=== PATIENT | female | born 1950 | race Caucasian/White ===

== ENCOUNTER 2021-07-09 09:17 | Inpatient (IN) | payer OTHER, MEDICAID ==
[~2021-07-09] VITALS: Ht 175.3 cm; Wt 105.4 kg
[2021-07-09 10:29] LABS: Basophils # (auto) 0.1 10 ^3/uL (0-0.2); Basophils % (auto) 1.1 % (0.0-2.0); Eosinophils # (auto) 0.1 10 ^3/uL (0-0.8); Eosinophils % (auto) 1.4 % (0.0-7.0); Hematocrit 48.9 % (36.0-46.0); Hemoglobin 16.9 g/dL (12.2-16.2); Lymphocytes # (auto) 2.1 10 ^3/uL (0.4-5.4); Lymphocytes % (auto) 42.6 % (10.0-50.0); Mean Corpuscular Hgb Conc. 34.7 g/dL (32.0-36.0); Mean Corpuscular Volume 86.5 fL (80.0-100.0); Monocytes # (auto) 0.5 10 ^3/uL (0-1.3); Monocytes % (auto) 10.4 % (0.0-12.0); Neutrophils # (auto) 2.2 10 ^3/uL (1.6-8.6); Neutrophils % (auto) 44.5 % (37.0-80.0); Nucleated Red Blood Cells % 0.2 %; Red Blood Cells 5.66 10^6/uL (4.0-5.20); Red Cell Distribution Width 13.3 % (11.8-14.3)
[2021-07-09 10:43] LABS: Albumin 3.8 g/dL (3.4-5.0); Calcium 9.5 mg/dL (8.5-10.1); Potassium 3.3 mmol/L (3.5-5.1)
[2021-07-09 10:47] LABS: BUN/Creatinine Ratio 20.9
[2021-07-09 10:48] LABS: Bilirubin, Total 0.9 mg/dL (0.2-1.0); Total Protein 7.5 g/dL (6.4-8.2)
[2021-07-09] MEDS ORDERED: ONDANSETRON HCL 4 MG/2 ML VIAL IV ONE (11:15)
[2021-07-09] MEDS ORDERED: PANTOPRAZOLE 40 MG/10 ML VIAL INJ IV ONE (11:15)
[2021-07-09] MEDS ORDERED: SODIUM CHLORIDE 0.9% 500 ML IVB ONE (11:15)
[2021-07-09 11:38] LABS: Urine Blood Negative /uL (Negative)
[2021-07-09] MEDS ORDERED: POTASSIUM CHL 20MEQ/100ML 100 ML IV ONE (11:45)
[2021-07-09 13:40] LABS: Urine WBC 25 /hpf (0 - 5)
[2021-07-09 13:41] LABS: Urine Bacteria FEW /hpf (None Seen)
[2021-07-09] MEDS ORDERED: SODIUM CHLORIDE 0.9% 3,000 ML IV SCH (17:15)
[2021-07-09] MEDS ORDERED: MORPHINE SULFATE INJECTION 2 MG/ML SYRG IV PRN (17:15)
[2021-07-09] MEDS ORDERED: cefTRIAXone 1GM/50ML D5W 50 ML IV ONE (17:30)
[2021-07-09] MEDS: SODIUM CHLORIDE 0.9% 1,000 ML IV SCH (17:45)
[2021-07-09] MEDS ORDERED: hydrALAZINE HCL 20 MG/ML VL IV PRN (17:45)
[2021-07-09 18:48] LABS: Magnesium 2.3 mg/dL (1.6-2.6)
[2021-07-09 20:15] VITALS: BP 147/80
[2021-07-09 20:39] VITALS: BP 147/80
[2021-07-09] MEDS ORDERED: HEPARIN SODIUM (PORCINE) 5000 UNITS/ML 1ML VIAL ONE (20:39)
[2021-07-09] MEDS ORDERED: MET50T PO (20:46)
[2021-07-09] MEDS ORDERED: PAR20T PO (20:46)
[2021-07-09] MEDS ORDERED: BENA10TA15 PO (20:46)
[2021-07-09] MEDS: HEPARIN SODIUM (PORCINE) 5000 UNITS/ML 1ML VIAL SC SCH (21:01)
[2021-07-09] MEDS: metroNIDAZOLE 500MG/100ML 100 ML IV SCH (21:02)
[2021-07-09 21:55] VITALS: BP 121/65
[2021-07-10] MEDS: SODIUM CHLORIDE 0.9% 1,000 ML IV SCH ×2 (02:05→09:01)
[2021-07-10 05:00] VITALS: BP 111/49
[2021-07-10] MEDS: metroNIDAZOLE 500MG/100ML 100 ML IV SCH (05:19)
[2021-07-10 06:30] LABS: Basophils # (auto) 0 10 ^3/uL (0-0.2); Basophils % (auto) 0.7 % (0.0-2.0); Eosinophils # (auto) 0.2 10 ^3/uL (0-0.8); Hematocrit 42.9 % (36.0-46.0); Mean Corpuscular Hemoglobin 30.1 pg (28.0-32.0); Mean Corpuscular Hgb Conc. 34.9 g/dL (32.0-36.0); Mean Corpuscular Volume 86.3 fL (80.0-100.0); Neutrophils # (auto) 1.6 10 ^3/uL (1.6-8.6); Nucleated Red Blood Cells % 0.2 %; Red Blood Cells 4.97 10^6/uL (4.0-5.20); Red Cell Distribution Width 13.5 % (11.8-14.3); White Blood Cell 5.3 10^3/uL (4.4-10.8)
[2021-07-10 06:32] LABS: Potassium 3.1 mmol/L (3.5-5.1)
[2021-07-10 06:45] LABS: Lymphocytes % (auto) 53.7 % (10.0-50.0); Monocytes % (auto) 12.6 % (0.0-12.0)
[2021-07-10 06:46] LABS: Lymphocytes # (auto) 2.7 10 ^3/uL (0.4-5.4); Monocytes # (auto) 0.8 10 ^3/uL (0-1.3)
[2021-07-10 06:58] LABS: Albumin 3.1 g/dL (3.4-5.0); BUN/Creatinine Ratio 24.7; Bilirubin, Total 0.6 mg/dL (0.2-1.0); Calcium 8.6 mg/dL (8.5-10.1); Total Protein 6.6 g/dL (6.4-8.2)
[2021-07-10] MEDS: cefTRIAXone 1GM/50ML D5W 50 ML IV SCH (09:00)
[2021-07-10] MEDS: HEPARIN SODIUM (PORCINE) 5000 UNITS/ML 1ML VIAL SC SCH (09:01)
[2021-07-10 09:08] VITALS: BP 113/60
[2021-07-10] MEDS ORDERED: ACETAMINOPHEN 325 MG TAB PO PRN (10:30)
[2021-07-10] MEDS ORDERED: POTASSIUM CHL 20 Meq TABLET PO ONE (11:45)
[2021-07-10] MEDS ORDERED: guaiFENesin-DM 100/10mg/5ml SYR PO PRN (11:45)
[2021-07-10] MEDS: BENAZEPRIL HCL 10 MG TAB PO SCH (12:45)
[2021-07-10] MEDS: PARoxetine 20 MG TAB PO SCH (12:45)
[2021-07-10] MEDS: METOPROLOL SUCCINATE XL 50 MG TAB PO SCH (12:45)
[2021-07-10 13:00] VITALS: BP 123/70
[2021-07-10 16:29] VITALS: BP 99/72
[2021-07-10 22:00] VITALS: BP 111/64
[2021-07-10] MEDS ORDERED: METOPROLOL TARTRATE 50 MG TAB PO SCH (22:00)
[2021-07-11] MEDS: HEPARIN SODIUM (PORCINE) 5000 UNITS/ML 1ML VIAL SC SCH ×2 (00:16→09:52)
[2021-07-11 05:00] VITALS: BP 106/41
[2021-07-11 06:15] LABS: Hematocrit 39.1 % (36.0-46.0); Hemoglobin 13.6 g/dL (12.2-16.2); Mean Corpuscular Hgb Conc. 34.9 g/dL (32.0-36.0); Red Blood Cells 4.55 10^6/uL (4.0-5.20); Red Cell Distribution Width 13.5 % (11.8-14.3)
[2021-07-11 06:27] LABS: BUN/Creatinine Ratio 20.8; Calcium 8.5 mg/dL (8.5-10.1); Potassium 3.4 mmol/L (3.5-5.1)
[2021-07-11 06:32] LABS: Basophils % (manual) 0 (0.0-2.0); Blast Cells 0; Metamyelocytes % 0; Myelocytes % 0; Promyelocytes % 0; Reactive Lymphocytes 0
[2021-07-11 07:42] LABS: Band Neutrophils % (manual) 3; Eosinophils % (manual) 2 (0-7); Lymphocytes % (manual) 54 (10.0-50.0); Monocytes % (manual) 8 (0-12)
[2021-07-11 08:42] VITALS: BP 129/72
[2021-07-11] MEDS: cefTRIAXone 1GM/50ML D5W 50 ML IV SCH (09:44)
[2021-07-11] MEDS: PARoxetine 20 MG TAB PO SCH (09:45)
[2021-07-11] MEDS: METOPROLOL SUCCINATE XL 50 MG TAB PO SCH (09:49)
[2021-07-11] MEDS: BENAZEPRIL HCL 10 MG TAB PO SCH (09:50)
[2021-07-11] MEDS ORDERED: BENAZEPRIL HCL 10 MG TAB PO SCH (10:00)
[2021-07-11] MEDS ORDERED: PARoxetine 20 MG TAB PO SCH (10:00)
[2021-07-11] MEDS ORDERED: LEVO750T8 PO (10:35)
[2021-07-11] MEDS ORDERED: POTASSIUM EFFERVESENT TAB 25 MEQ GT ONE (10:45)
[2021-07-11 12:45] VITALS: BP 132/78
[2021-07-11 15:49] VITALS: BP 132/78
[2021-07-11 16:47] VITALS: BP 136/67
== END 2021-07-11 16:48 | disposition home or self-care (01) | DRG 682 ==
LOC: ER 09:17 → OVERFLOW 17:14 → WEST WING 19:38
PROVIDERS: ADMIT Registered Nurse; ATTEND Internal Medicine Pulmonary Disease
DX: N17.9 Acute kidney failure, unspecified (principal); J18.9 Pneumonia, unspecified organism; N39.0 Urinary tract infection, site not specified; E86.0 Dehydration; E66.01 Morbid (severe) obesity due to excess calories; E87.6 Hypokalemia; F41.9 Anxiety disorder, unspecified; I10 Essential (primary) hypertension; Z20.822 Contact with and (suspected) exposure to COVID-19; R79.89 Other specified abnormal findings of blood chemistry; K57.30 Diverticulosis of large intestine without perforation or abscess without bleeding; Z90.49 Acquired absence of other specified parts of digestive tract; Z68.34 Body mass index [BMI] 34.0-34.9, adult
CPT/HCPCS: 36415; 71046; 74176; 80048; 80053; 80061; 81001; 83036; 83735; 83880; 84443; 84484; 85007; 85025; 85027; 87086; 93005; 96361; 96374; 96375; C9113; G0378; J0696; J2405; J3480; J3490

== ENCOUNTER 2022-07-01 08:24 | Emergency (ER) | payer OTHER ==
[~2022-07-01] VITALS: Ht 177.8 cm; Wt 111.5 kg
[~2022-07-01 08:24] MED LIST: ASPI1TAB19 PO; BENA10TA15 PO; LEVO750T8 PO; MET50T PO; METR500T PO; PAR20T PO
[2022-07-01] MEDS ORDERED: SODIUM CHLORIDE 0.9% 1,000 ML IV ONE (09:00)
[2022-07-01] MEDS ORDERED: MORPHINE SULFATE 10 MG/ML INJ 1ML SDV IV ONE (09:00)
[2022-07-01] MEDS ORDERED: ONDANSETRON HCL 4 MG/2 ML VIAL IV ONE (09:00)
[2022-07-01 09:16] LABS: Urine Bacteria NONE SEEN /hpf (None Seen); Urine Blood TRACE /uL (Negative); Urine Mucus FEW (None Seen); Urine Specific Gravity 1.026 (1.001-1.035); Urine WBC 20 /hpf (0 - 5)
[2022-07-01 09:22] LABS: Basophils # (auto) 0.2 10 ^3/uL (0-0.2); Basophils % (auto) 1.2 % (0.0-2.0); Eosinophils # (auto) 0.2 10 ^3/uL (0-0.8); Eosinophils % (auto) 1.2 % (0.0-7.0); Hematocrit 45.5 % (36.0-46.0); Hemoglobin 15.8 g/dL (12.2-16.2); Lymphocytes # (auto) 3.1 10 ^3/uL (0.4-5.4); Mean Corpuscular Hemoglobin 30.3 pg (28.0-32.0); Mean Corpuscular Hgb Conc. 34.7 g/dL (32.0-36.0); Mean Corpuscular Volume 87.4 fL (80.0-100.0); Monocytes # (auto) 0.9 10 ^3/uL (0-1.3); Monocytes % (auto) 6.9 % (0.0-12.0); Neutrophils % (auto) 67.7 % (37.0-80.0); Nucleated Red Blood Cells % 0.1 %; Red Cell Distribution Width 14.1 % (11.8-14.3); White Blood Cell 13.3 10^3/uL (4.4-10.8)
[2022-07-01 11:18] LABS: Alanine Aminotransferase 21 U/L (13-56); Alkaline Phosphatase 40 U/L (45-117); Anion Gap 5 (5-15); Aspartate Aminotransferase 12 U/L (15-37); BUN/Creatinine Ratio 18.3 (10.0-20.0); Blood Urea Nitrogen 15 mg/dL (7-18); Calcium 8.5 mg/dL (8.5-10.1); Carbon Dioxide 27 mmol/L (21-32); Chloride 107 mmol/L (98-107); GFR African American 89 mL/min; GFR Non-African American 73 mL/min; Glucose 118 mg/dL (74-106); Potassium 3.5 mmol/L (3.5-5.1); Sodium 139 mmol/L (136-145)
[2022-07-01 11:19] LABS: Albumin 3.3 g/dL (3.4-5.0); Bilirubin, Total 1.4 mg/dL (0.2-1.0); Lipase 85 U/L (73-393); Total Protein 6.4 g/dL (6.4-8.2)
[2022-07-01] MEDS ORDERED: IOHEXOL 300 MG/ML 100ML BOTTLE IJ ONE (12:05)
[2022-07-01] MEDS ORDERED: metroNIDAZOLE 500MG/100ML 100 ML IV ONE (13:45)
[2022-07-01] MEDS ORDERED: CIPROFLOXACIN 400MG/200ML 200 ML IV ONE (13:45)
[2022-07-01] MEDS ORDERED: CIPR-173 PO (13:47)
[2022-07-01] MEDS ORDERED: METR500T PO (13:47)
[2022-07-01] MEDS ORDERED: DICY10CA PO ×2 (13:47)
[2022-07-01] MEDS ORDERED: ONDA-144 PO ×2 (13:47)
[2022-07-01 16:06] VITALS: BP 120/66
== END 2022-07-01 16:14 | disposition home or self-care (01) ==
LOC: ER 08:24
DX: K57.32 Diverticulitis of large intestine without perforation or abscess without bleeding (principal); N39.0 Urinary tract infection, site not specified; I10 Essential (primary) hypertension; Z87.891 Personal history of nicotine dependence; Z90.49 Acquired absence of other specified parts of digestive tract; Z98.890 Other specified postprocedural states
CPT/HCPCS: 36415; 74177; 80053; 81001; 83690; 85025; 96365; 96368; 96375; 99285; J0744; J2270; J2405; J3490; Q9967

== ENCOUNTER 2022-07-04 08:20 | Inpatient (IN) | payer OTHER ==
[~2022-07-04] VITALS: Ht 175.3 cm; Wt 113.5 kg
[~2022-07-04 08:20] MED LIST changes: +CIPR-173 PO; +DICY10CA PO; +ONDA-144 PO
[2022-07-04 09:06] LABS: Urine Bacteria FEW /hpf (None Seen); Urine Blood Negative /uL (Negative); Urine Mucus FEW (None Seen); Urine Specific Gravity 1.024 (1.001-1.035); Urine WBC 22 /hpf (0 - 5)
[2022-07-04 09:17] LABS: Basophils # (auto) 0 10 ^3/uL (0-0.2); Basophils % (auto) 0.5 % (0.0-2.0); Eosinophils # (auto) 0.3 10 ^3/uL (0-0.8); Eosinophils % (auto) 4.7 % (0.0-7.0); Hematocrit 43.5 % (36.0-46.0); Hemoglobin 14.9 g/dL (12.2-16.2); Lymphocytes # (auto) 2.4 10 ^3/uL (0.4-5.4); Lymphocytes % (auto) 32.6 % (10.0-50.0); Mean Corpuscular Hemoglobin 30.1 pg (28.0-32.0); Mean Corpuscular Hgb Conc. 34.4 g/dL (32.0-36.0); Mean Corpuscular Volume 87.6 fL (80.0-100.0); Monocytes # (auto) 0.5 10 ^3/uL (0-1.3); Monocytes % (auto) 6.1 % (0.0-12.0); Neutrophils # (auto) 4.2 10 ^3/uL (1.6-8.6); Neutrophils % (auto) 56.1 % (37.0-80.0); Nucleated Red Blood Cells % 0.1 %; Red Blood Cells 4.97 10^6/uL (4.0-5.20); Red Cell Distribution Width 13.4 % (11.8-14.3); White Blood Cell 7.4 10^3/uL (4.4-10.8)
[2022-07-04] MEDS ORDERED: cefTRIAXone 1GM/50ML D5W 50 ML IV ONE (09:30)
[2022-07-04] MEDS ORDERED: metroNIDAZOLE 500MG/100ML 100 ML IV ONE (09:30)
[2022-07-04] MEDS ORDERED: SODIUM CHLORIDE 0.9% 1,000 ML IV ONE ×2 (09:30)
[2022-07-04 09:35] LABS: Potassium 3.4 mmol/L (3.5-5.1)
[2022-07-04 09:42] LABS: Albumin 3.4 g/dL (3.4-5.0); BUN/Creatinine Ratio 21.8 (10.0-20.0); Bilirubin, Total 0.9 mg/dL (0.2-1.0); Calcium 8.8 mg/dL (8.5-10.1); Total Protein 6.6 g/dL (6.4-8.2)
[2022-07-04] MEDS ORDERED: ACETAMINOPHEN 500 MG TAB PO ONE (11:00)
[2022-07-04] MEDS ORDERED: ONDANSETRON HCL 4 MG/2 ML VIAL IV ONE (11:00)
[2022-07-04] MEDS ORDERED: NITROGLYCERIN 0.4 MG SL TAB SL PRN (12:45)
[2022-07-04] MEDS ORDERED: ONDANSETRON HCL 4 MG/2 ML VIAL IV PRN (12:45)
[2022-07-04] MEDS ORDERED: DOCUSATE SOD 100 MG CAP PO PRN (12:45)
[2022-07-04] MEDS ORDERED: HYDROcodone-ACET 5/325MG TAB PO PRN (12:45)
[2022-07-04] MEDS ORDERED: MORPHINE SULFATE INJ 2 MG/ml SYRG IV PRN (12:45)
[2022-07-04] MEDS: SODIUM CHLORIDE 0.9% 1,000 ML IV SCH ×2 (13:12→22:58)
[2022-07-04] MEDS: metroNIDAZOLE 500MG/100ML 100 ML IV SCH ×2 (14:04→22:57)
[2022-07-04] MEDS ORDERED: POTASSIUM CHL 20 Meq TABLET PO ONE (17:00)
[2022-07-04] MEDS ORDERED: METOPROLOL TARTRATE 50 MG TAB PO SCH (22:00)
[2022-07-04 22:04] VITALS: BP 116/44
[2022-07-04] MEDS: ACETAMINOPHEN 325 MG TAB PO PRN (22:43)
[2022-07-05] MEDS: metroNIDAZOLE 500MG/100ML 100 ML IV SCH ×3 (05:40→21:05)
[2022-07-05 07:32] LABS: Basophils # (auto) 0.1 10 ^3/uL (0-0.2); Basophils % (auto) 1.3 % (0.0-2.0); Eosinophils # (auto) 0.4 10 ^3/uL (0-0.8); Eosinophils % (auto) 6.8 % (0.0-7.0); Hematocrit 40.5 % (36.0-46.0); Hemoglobin 14.2 g/dL (12.2-16.2); Mean Corpuscular Hemoglobin 30.6 pg (28.0-32.0); Mean Corpuscular Hgb Conc. 34.9 g/dL (32.0-36.0); Mean Corpuscular Volume 87.5 fL (80.0-100.0); Monocytes # (auto) 0.4 10 ^3/uL (0-1.3); Monocytes % (auto) 7.8 % (0.0-12.0); Neutrophils # (auto) 2.8 10 ^3/uL (1.6-8.6); Neutrophils % (auto) 49.1 % (37.0-80.0); Nucleated Red Blood Cells % 0.1 %; Red Blood Cells 4.63 10^6/uL (4.0-5.20); Red Cell Distribution Width 13.6 % (11.8-14.3); White Blood Cell 5.7 10^3/uL (4.4-10.8)
[2022-07-05 07:55] LABS: Albumin 2.8 g/dL (3.4-5.0); Calcium 8.8 mg/dL (8.5-10.1); Potassium 3.5 mmol/L (3.5-5.1)
[2022-07-05 07:57] LABS: BUN/Creatinine Ratio 15.8 (10.0-20.0)
[2022-07-05 08:00] LABS: Bilirubin, Total 0.6 mg/dL (0.2-1.0); Total Protein 6.5 g/dL (6.4-8.2)
[2022-07-05] MEDS: SODIUM CHLORIDE 0.9% 1,000 ML IV SCH ×2 (08:45→18:45)
[2022-07-05 09:37] VITALS: BP 130/59
[2022-07-05] MEDS ORDERED: BENAZEPRIL HCL 10 MG TAB PO SCH (10:00)
[2022-07-05] MEDS ORDERED: PANTOPRAZOLE 40 MG/10 ML VIAL INJ IV SCH (10:00)
[2022-07-05] MEDS: ASPirin-EC 81 mg tab PO SCH (10:38)
[2022-07-05] MEDS: PARoxetine 20 MG TAB PO SCH (10:39)
[2022-07-05] MEDS: cefTRIAXone 1GM/50ML D5W 50 ML IV SCH (10:39)
[2022-07-05] MEDS: BENAZEPRIL HCL 10 MG TAB PO SCH (11:05)
[2022-07-05] MEDS: METOPROLOL TARTRATE 25 MG TAB PO SCH ×2 (11:05→21:45)
[2022-07-05] MEDS: ACETAMINOPHEN 325 MG TAB PO PRN ×2 (11:06→20:19)
[2022-07-05 12:53] VITALS: BP 140/69
[2022-07-05 16:37] VITALS: BP 131/61
[2022-07-05 22:00] VITALS: BP 134/68
[2022-07-06] MEDS: SODIUM CHLORIDE 0.9% 1,000 ML IV SCH ×2 (04:45→14:45)
[2022-07-06 05:00] VITALS: BP 111/51
[2022-07-06 05:35] LABS: BUN/Creatinine Ratio 15.4 (10.0-20.0); Calcium 8.8 mg/dL (8.5-10.1); Magnesium 2.3 mg/dL (1.6-2.6); Potassium 3.4 mmol/L (3.5-5.1)
[2022-07-06] MEDS: metroNIDAZOLE 500MG/100ML 100 ML IV SCH ×3 (06:21→21:04)
[2022-07-06 09:00] VITALS: BP 138/66
[2022-07-06] MEDS: ASPirin-EC 81 mg tab PO SCH (09:30)
[2022-07-06] MEDS: cefTRIAXone 1GM/50ML D5W 50 ML IV SCH (09:30)
[2022-07-06] MEDS: PARoxetine 20 MG TAB PO SCH (09:31)
[2022-07-06] MEDS: BENAZEPRIL HCL 10 MG TAB PO SCH (09:33)
[2022-07-06] MEDS: METOPROLOL TARTRATE 25 MG TAB PO SCH ×2 (09:33→21:47)
[2022-07-06] MEDS: ACETAMINOPHEN 325 MG TAB PO PRN (09:34)
[2022-07-06] MEDS ORDERED: POTASSIUM CHL 20 Meq TABLET PO ONE (10:30)
[2022-07-06 13:00] VITALS: BP 144/67
[2022-07-06 16:52] VITALS: BP 137/57
[2022-07-06 22:00] VITALS: BP 143/65
[2022-07-07] MEDS: SODIUM CHLORIDE 0.9% 1,000 ML IV SCH ×2 (00:45→07:47)
[2022-07-07 05:00] VITALS: BP 134/93
[2022-07-07] MEDS: metroNIDAZOLE 500MG/100ML 100 ML IV SCH (05:36)
[2022-07-07 06:37] LABS: Calcium 8.9 mg/dL (8.5-10.1)
[2022-07-07 09:00] VITALS: BP 155/76
[2022-07-07] MEDS: ASPirin-EC 81 mg tab PO SCH (09:24)
[2022-07-07] MEDS: cefTRIAXone 1GM/50ML D5W 50 ML IV SCH (09:24)
[2022-07-07] MEDS: PARoxetine 20 MG TAB PO SCH (09:24)
[2022-07-07] MEDS ORDERED: CIPR-173 PO (09:29)
[2022-07-07] MEDS ORDERED: METR500T PO (09:29)
[2022-07-07] MEDS ORDERED: METO25TA93 PO (10:57)
[2022-07-07] MEDS ORDERED: BENA20TA14 PO (10:58)
[2022-07-07] MEDS: METOPROLOL TARTRATE 25 MG TAB PO SCH (11:17)
[2022-07-07] MEDS: BENAZEPRIL HCL 10 MG TAB PO SCH (11:17)
[2022-07-07 12:09] VITALS: BP 155/76
[2022-07-07 13:00] VITALS: BP 136/65
== END 2022-07-07 14:17 | disposition home or self-care (01) | DRG 392 ==
LOC: ER 08:20 → TELE 12:51 → TELE-WESTW 22:03
PROVIDERS: ADMIT Nurse Practitioner Family; ATTEND Internal Medicine Geriatric Medicine
DX: K57.32 Diverticulitis of large intestine without perforation or abscess without bleeding (principal); N39.0 Urinary tract infection, site not specified; E44.0 Moderate protein-calorie malnutrition; I10 Essential (primary) hypertension; E87.6 Hypokalemia; Z68.37 Body mass index [BMI] 37.0-37.9, adult; R00.1 Bradycardia, unspecified
CPT/HCPCS: 36415; 74176; 80048; 80053; 81001; 82306; 83605; 83690; 83735; 84484; 85025; 87040; 93005; 96365; 96366; 96375; G0378; J0696; J2405; J3490

== ENCOUNTER 2023-01-06 07:44 | Inpatient (IN) | payer OTHER ==
[~2023-01-06] VITALS: Ht 175.3 cm; Wt 111.7 kg
[~2023-01-06 07:44] MED LIST changes: +BENA-36 PO; -BENA10TA15 PO; -CIPR-173 PO; -DICY10CA PO; +LEVO500T91 PO; -LEVO750T8 PO; +MET500T PO; -MET50T PO; +METO25TA93 PO; -METR500T PO; -ONDA-144 PO
[2023-01-06 08:43] LABS: Basophils # (auto) 0.1 10 ^3/uL (0-0.2); Basophils % (auto) 0.7 % (0.0-2.0); Eosinophils # (auto) 0.1 10 ^3/uL (0-0.8); Eosinophils % (auto) 1.2 % (0.0-7.0); Hematocrit 47.1 % (36.0-46.0); Hemoglobin 16.1 g/dL (12.2-16.2); Lymphocytes # (auto) 3.1 10 ^3/uL (0.4-5.4); Lymphocytes % (auto) 27.1 % (10.0-50.0); Mean Corpuscular Hemoglobin 29.8 pg (28.0-32.0); Mean Corpuscular Hgb Conc. 34.2 g/dL (32.0-36.0); Mean Corpuscular Volume 87.4 fL (80.0-100.0); Monocytes # (auto) 0.7 10 ^3/uL (0-1.3); Monocytes % (auto) 5.8 % (0.0-12.0); Neutrophils # (auto) 7.6 10 ^3/uL (1.6-8.6); Neutrophils % (auto) 65.2 % (37.0-80.0); Nucleated Red Blood Cells % 0.1 %; Red Cell Distribution Width 13.6 % (11.8-14.3); White Blood Cell 11.6 10^3/uL (4.4-10.8)
[2023-01-06 09:00] LABS: Alanine Aminotransferase 19 U/L (7-40); Albumin 4.4 g/dL (3.2-4.8); Alkaline Phosphatase 59 U/L (46-116); Anion Gap 6 (5-15); BUN/Creatinine Ratio 12.7 (10.0-20.0); Blood Urea Nitrogen 10 mg/dL (9-23); Calcium 9.5 mg/dL (8.5-10.1); Carbon Dioxide 30 mmol/L (20-30); Chloride 105 mmol/L (98-107); Glucose 147 mg/dL (74-106); Potassium 3.6 mmol/L (3.5-5.1); Sodium 141 mmol/L (136-145)
[2023-01-06 09:01] LABS: Bilirubin, Total 2.1 mg/dL (0.2-1.0); Total Protein 7.3 g/dL (5.7-8.2)
[2023-01-06 09:33] LABS: Aspartate Aminotransferase 13 U/L (13-40)
[2023-01-06] MEDS ORDERED: metroNIDAZOLE 500MG/100ML 100 ML IV ONE (10:15)
[2023-01-06] MEDS ORDERED: KETOROLAC TROMETH 30 MG/ML 1ML VIAL IV ONE (10:15)
[2023-01-06] MEDS ORDERED: cefTRIAXone 1GM/50ML D5W 50 ML IV ONE (10:15)
[2023-01-06] MEDS ORDERED: SODIUM CHLORIDE 0.9% 1,000 ML IV ONE ×3 (10:15)
[2023-01-06 11:00] VITALS: PULSE 53; RESP 20; O2SAT 92
[2023-01-06 11:29] LABS: Lipase 46 U/L (12-53)
[2023-01-06] MEDS ORDERED: PANTOPRAZOLE 40 MG/10 ML VIAL INJ IV ONE (12:45)
[2023-01-06] MEDS ORDERED: ONDANSETRON HCL 4 MG/2 ML VIAL IV PRN (12:45)
[2023-01-06 14:03] LABS: Triglycerides 105 mg/dL (< 150)
[2023-01-06 14:04] LABS: LDL Cholesterol 138 mg/dL (< 100)
[2023-01-06 14:05] LABS: Cholesterol 199 mg/dL (< 200); HDL Cholesterol 50 mg/dL (40-59)
[2023-01-06] MEDS: SODIUM CHLORIDE 0.9% 1,000 ML IV SCH (15:30)
[2023-01-06 16:40] VITALS: RESP 18; O2SAT 95
[2023-01-06 17:20] LABS: Urine Bacteria NONE SEEN /hpf (None Seen); Urine Blood Negative /uL (Negative); Urine Clarity HAZY (Clear); Urine Color Yellow (Yellow); Urine Mucus FEW (None Seen); Urine Protein, UAD 1+ (Negative); Urine Specific Gravity 1.032 (1.001-1.035); Urine WBC 4 /hpf (0 - 5); Urine pH 5.5 (5.0-8.0)
[2023-01-06] MEDS: metroNIDAZOLE 500MG/100ML 100 ML IV SCH (18:44)
[2023-01-06 20:00] VITALS: PULSE 60; RESP 60; O2SAT 94
[2023-01-06 22:00] VITALS: BP 139/55; PULSE 60; RESP 18; TEMP 97.8; O2SAT 94
[2023-01-07] VITALS (7 sets, daily range): BP systolic 144–162; BP diastolic 60–88; PULSE 59–65; RESP 16–20; TEMP 97.5–98.4; O2SAT 93–97
[2023-01-07] MEDS: SODIUM CHLORIDE 0.9% 1,000 ML IV SCH ×3 (01:09→10:50)
[2023-01-07] MEDS: metroNIDAZOLE 500MG/100ML 100 ML IV SCH ×3 (04:00→18:33)
[2023-01-07 07:08] LABS: Basophils # (auto) 0.1 10 ^3/uL (0-0.2); Basophils % (auto) 0.8 % (0.0-2.0); Eosinophils # (auto) 0.3 10 ^3/uL (0-0.8); Eosinophils % (auto) 3.4 % (0.0-7.0); Hematocrit 43.9 % (36.0-46.0); Hemoglobin 14.7 g/dL (12.2-16.2); Lymphocytes # (auto) 1.8 10 ^3/uL (0.4-5.4); Lymphocytes % (auto) 21.7 % (10.0-50.0); Mean Corpuscular Hemoglobin 29.8 pg (28.0-32.0); Mean Corpuscular Hgb Conc. 33.6 g/dL (32.0-36.0); Mean Corpuscular Volume 88.7 fL (80.0-100.0); Monocytes # (auto) 0.6 10 ^3/uL (0-1.3); Monocytes % (auto) 7.2 % (0.0-12.0); Neutrophils # (auto) 5.6 10 ^3/uL (1.6-8.6); Neutrophils % (auto) 66.9 % (37.0-80.0); Red Blood Cells 4.95 10^6/uL (4.0-5.20); Red Cell Distribution Width 13.7 % (11.8-14.3); White Blood Cell 8.3 10^3/uL (4.4-10.8)
[2023-01-07 07:47] LABS: Alanine Aminotransferase 16 U/L (7-40); Albumin 3.9 g/dL (3.2-4.8); Alkaline Phosphatase 51 U/L (46-116); Anion Gap 5 (5-15); Aspartate Aminotransferase 14 U/L (13-40); BUN/Creatinine Ratio 15.7 (10.0-20.0); Bilirubin, Total 1.5 mg/dL (0.2-1.0); Blood Urea Nitrogen 11 mg/dL (9-23); Carbon Dioxide 29 mmol/L (20-30); Chloride 108 mmol/L (98-107); Glucose 90 mg/dL (74-106); Potassium 3.9 mmol/L (3.5-5.1); Sodium 142 mmol/L (136-145); Total Protein 6.4 g/dL (5.7-8.2)
[2023-01-07] MEDS: ASPirin-EC 81 mg tab PO SCH (08:11)
[2023-01-07] MEDS: BENAZEPRIL HCL 10 MG TAB PO SCH (08:13)
[2023-01-07] MEDS: cefTRIAXone 1GM/50ML D5W 50 ML IV SCH (08:14)
[2023-01-07] MEDS: METOPROLOL SUCCINATE XL 50 MG TAB PO SCH (08:14)
[2023-01-07] MEDS: ACETAMINOPHEN 325 MG TAB PO PRN (08:17)
[2023-01-07] MEDS: PARoxetine 20 MG TAB PO SCH (08:17)
[2023-01-07] MEDS ORDERED: ENOXAPARIN SOD 40 MG/0.4 ML SYRINGE SC SCH (10:00)
[2023-01-07] MEDS ORDERED: PANTOPRAZOLE 40 MG/10 ML VIAL INJ IV SCH (10:00)
[2023-01-07] MEDS ORDERED: KETOROLAC TROMETH 30 MG/ML 1ML VIAL IV PRN (10:30)
[2023-01-08] VITALS (9 sets, daily range): BP systolic 128–160; BP diastolic 40–75; PULSE 57–93; RESP 16–20; TEMP 97.8–98.9; O2SAT 89–98
[2023-01-08] MEDS: SODIUM CHLORIDE 0.9% 1,000 ML IV SCH ×2 (01:05→13:10)
[2023-01-08] MEDS: metroNIDAZOLE 500MG/100ML 100 ML IV SCH ×3 (04:51→18:12)
[2023-01-08 06:19] LABS: Chloride 107 mmol/L (98-107); Potassium 3.8 mmol/L (3.5-5.1); Sodium 142 mmol/L (136-145)
[2023-01-08 06:20] LABS: Anion Gap 6 (5-15); Calcium 8.9 mg/dL (8.7-10.4); Carbon Dioxide 29 mmol/L (20-30)
[2023-01-08 06:25] LABS: BUN/Creatinine Ratio 10.3 (10.0-20.0); Blood Urea Nitrogen 8 mg/dL (9-23); Glucose 86 mg/dL (74-106)
[2023-01-08] MEDS: ACETAMINOPHEN 325 MG TAB PO PRN ×2 (06:27→21:45)
[2023-01-08 06:28] LABS: Basophils # (auto) 0.1 10 ^3/uL (0-0.2); Basophils % (auto) 0.8 % (0.0-2.0); Eosinophils # (auto) 0.2 10 ^3/uL (0-0.8); Eosinophils % (auto) 3.5 % (0.0-7.0); Hematocrit 41.9 % (36.0-46.0); Hemoglobin 14.2 g/dL (12.2-16.2); Lymphocytes # (auto) 2.1 10 ^3/uL (0.4-5.4); Lymphocytes % (auto) 32.6 % (10.0-50.0); Mean Corpuscular Hemoglobin 30.2 pg (28.0-32.0); Mean Corpuscular Hgb Conc. 33.9 g/dL (32.0-36.0); Mean Corpuscular Volume 89.2 fL (80.0-100.0); Monocytes # (auto) 0.5 10 ^3/uL (0-1.3); Monocytes % (auto) 8.2 % (0.0-12.0); Neutrophils # (auto) 3.6 10 ^3/uL (1.6-8.6); Neutrophils % (auto) 54.9 % (37.0-80.0); Red Cell Distribution Width 13.7 % (11.8-14.3); White Blood Cell 6.5 10^3/uL (4.4-10.8)
[2023-01-08] MEDS: cefTRIAXone 1GM/50ML D5W 50 ML IV SCH (09:38)
[2023-01-08] MEDS: ASPirin-EC 81 mg tab PO SCH (09:38)
[2023-01-08] MEDS: METOPROLOL SUCCINATE XL 50 MG TAB PO SCH (09:38)
[2023-01-08] MEDS: BENAZEPRIL HCL 10 MG TAB PO SCH (09:39)
[2023-01-08] MEDS: PARoxetine 20 MG TAB PO SCH (09:39)
[2023-01-08] MEDS: PANTOPRAZOLE 40 MG TAB PO SCH (10:00)
[2023-01-08] MEDS ORDERED: ALBUTEROL SULF 2.5 MG/0.5ML(0.5%) NEB SOLN NEB PRN (10:30)
[2023-01-08] MEDS: NYSTATIN (MOUTH-THROAT) 500,000 UNITS/5 ML SUSP MT SCH ×3 (11:15→21:45)
[2023-01-08] MEDS: hydrALAZINE HCL 20 MG/ML VL IV PRN (18:13)
[2023-01-09] MEDS: SODIUM CHLORIDE 0.9% 1,000 ML IV SCH (02:30)
[2023-01-09 05:00] VITALS: BP 159/87; PULSE 77; RESP 16; TEMP 98.1; O2SAT 94
[2023-01-09 06:19] VITALS: O2SAT 99
[2023-01-09 06:40] LABS: Basophils # (auto) 0 10 ^3/uL (0-0.2); Basophils % (auto) 0.9 % (0.0-2.0); Eosinophils # (auto) 0.2 10 ^3/uL (0-0.8); Eosinophils % (auto) 3.9 % (0.0-7.0); Hematocrit 43.1 % (36.0-46.0); Hemoglobin 14.7 g/dL (12.2-16.2); Lymphocytes # (auto) 1.9 10 ^3/uL (0.4-5.4); Lymphocytes % (auto) 34.6 % (10.0-50.0); Mean Corpuscular Hemoglobin 30.1 pg (28.0-32.0); Mean Corpuscular Hgb Conc. 34.1 g/dL (32.0-36.0); Mean Corpuscular Volume 88.3 fL (80.0-100.0); Monocytes # (auto) 0.4 10 ^3/uL (0-1.3); Monocytes % (auto) 7.9 % (0.0-12.0); Neutrophils # (auto) 2.9 10 ^3/uL (1.6-8.6); Neutrophils % (auto) 52.7 % (37.0-80.0); Nucleated Red Blood Cells % 0.2 %; Red Blood Cells 4.88 10^6/uL (4.0-5.20); Red Cell Distribution Width 13.4 % (11.8-14.3); White Blood Cell 5.4 10^3/uL (4.4-10.8)
[2023-01-09] MEDS: NYSTATIN (MOUTH-THROAT) 500,000 UNITS/5 ML SUSP MT SCH ×2 (07:06→12:40)
[2023-01-09] MEDS: hydrALAZINE HCL 20 MG/ML VL IV PRN (07:06)
[2023-01-09] MEDS: metroNIDAZOLE 500MG/100ML 100 ML IV SCH (07:07)
[2023-01-09] MEDS: ASPirin-EC 81 mg tab PO SCH (08:57)
[2023-01-09] MEDS: ACETAMINOPHEN 325 MG TAB PO PRN (08:57)
[2023-01-09] MEDS: PANTOPRAZOLE 40 MG TAB PO SCH (08:58)
[2023-01-09] MEDS: cefTRIAXone 1GM/50ML D5W 50 ML IV SCH (08:58)
[2023-01-09] MEDS: BENAZEPRIL HCL 10 MG TAB PO SCH (08:58)
[2023-01-09] MEDS: METOPROLOL SUCCINATE XL 50 MG TAB PO SCH (08:59)
[2023-01-09] MEDS: PARoxetine 20 MG TAB PO SCH (08:59)
[2023-01-09 09:00] VITALS: BP 156/95; PULSE 72; RESP 22; TEMP 98; O2SAT 93
[2023-01-09 10:00] VITALS: O2SAT 96
[2023-01-09] MEDS ORDERED: NYS5LQ MT (10:13)
[2023-01-09] MEDS ORDERED: MET500T PO (10:13)
[2023-01-09] MEDS ORDERED: LEVO500T91 PO (10:13)
[2023-01-09 13:00] VITALS: BP 147/76; PULSE 74; RESP 20; TEMP 98.1; O2SAT 93
[2023-01-09] MEDS ORDERED: metroNIDAZOLE 500MG/100ML 100 ML IV SCH (15:00)
== END 2023-01-09 14:00 | disposition home or self-care (01) | DRG 872 ==
LOC: ER 07:44 → OVERFLOW 12:47 → CENTRAL 16:51
PROVIDERS: ADMIT Nurse Practitioner Family; ATTEND Internal Medicine
DX: A41.9 Sepsis, unspecified organism (principal); B37.0 Candidal stomatitis; K57.32 Diverticulitis of large intestine without perforation or abscess without bleeding; E66.01 Morbid (severe) obesity due to excess calories; I10 Essential (primary) hypertension; F41.9 Anxiety disorder, unspecified; F32.A Depression, unspecified; Z90.49 Acquired absence of other specified parts of digestive tract; Z88.8 Allergy status to other drugs, medicaments and biological substances; Z87.891 Personal history of nicotine dependence; Z68.36 Body mass index [BMI] 36.0-36.9, adult; Z83.3 Family history of diabetes mellitus; Z82.49 Family history of ischemic heart disease and other diseases of the circulatory system
CPT/HCPCS: 36415; 74176; 80048; 80053; 80061; 81001; 83036; 83605; 83690; 84443; 85025; 87040; 93005; 96361; 96365; 96367; 96375; 97110; 97116; 97163; 97530; C9113; G0378; J0696; J1885; J2405; J3490

== ENCOUNTER 2023-01-29 07:46 | Inpatient (IN) | payer OTHER ==
[~2023-01-29] VITALS: Ht 175.3 cm; Wt 109.8 kg
[~2023-01-29 07:46] MED LIST changes: +NYS5LQ MT
[2023-01-29] MEDS ORDERED: ONDANSETRON HCL 4 MG/2 ML VIAL IV ONE (08:00)
[2023-01-29 08:20] LABS: Basophils # (auto) 0.1 10 ^3/uL (0-0.2); Basophils % (auto) 0.7 % (0.0-2.0); Eosinophils # (auto) 0.1 10 ^3/uL (0-0.8); Eosinophils % (auto) 0.6 % (0.0-7.0); Hematocrit 46.8 % (36.0-46.0); Hemoglobin 15.8 g/dL (12.2-16.2); Lymphocytes # (auto) 3.1 10 ^3/uL (0.4-5.4); Lymphocytes % (auto) 22.3 % (10.0-50.0); Mean Corpuscular Hemoglobin 29.9 pg (28.0-32.0); Mean Corpuscular Hgb Conc. 33.9 g/dL (32.0-36.0); Mean Corpuscular Volume 88.4 fL (80.0-100.0); Monocytes % (auto) 7.6 % (0.0-12.0); Neutrophils # (auto) 9.4 10 ^3/uL (1.6-8.6); Neutrophils % (auto) 68.8 % (37.0-80.0); Red Blood Cells 5.29 10^6/uL (4.0-5.20); Red Cell Distribution Width 13.8 % (11.8-14.3); White Blood Cell 13.7 10^3/uL (4.4-10.8)
[2023-01-29] MEDS ORDERED: DICYCLOMINE HCL (10MG/ML) 2 ML AMPULE IM ONE (08:30)
[2023-01-29 08:45] LABS: Alanine Aminotransferase 17 U/L (7-40); Albumin 4.4 g/dL (3.2-4.8); Alkaline Phosphatase 52 U/L (46-116); Anion Gap 8 (5-15); Aspartate Aminotransferase 14 U/L (13-40); BUN/Creatinine Ratio 12.3 (10.0-20.0); Bilirubin, Total 2.3 mg/dL (0.2-1.0); Blood Urea Nitrogen 10 mg/dL (9-23); Calcium 9.5 mg/dL (8.5-10.1); Carbon Dioxide 26 mmol/L (20-30); Chloride 104 mmol/L (98-107); Glucose 162 mg/dL (74-106); Potassium 3.6 mmol/L (3.5-5.1); Sodium 138 mmol/L (136-145); Total Protein 7.3 g/dL (5.7-8.2)
[2023-01-29 09:05] LABS: Lipase 31 U/L (12-53)
[2023-01-29] MEDS ORDERED: ACETAMINOPHEN 500 MG TAB PO ONE ×2 (09:49→10:00)
[2023-01-29] MEDS ORDERED: SODIUM CHLORIDE 0.9% 1,000 ML IV ONE (11:30)
[2023-01-29] MEDS ORDERED: cefTRIAXone 1GM/50ML D5W 50 ML IV ONE (11:45)
[2023-01-29] MEDS ORDERED: LORazepam 0.5 MG TAB PO PRN (12:00)
[2023-01-29] MEDS ORDERED: MORPHINE SULFATE INJ 2 MG/ml SYRG IV PRN (12:00)
[2023-01-29] MEDS ORDERED: DOCUSATE SOD 100 MG CAP PO PRN (12:00)
[2023-01-29] MEDS ORDERED: METOCLOPRAMIDE HCL 5MG/ml INJ 2ml VIAL IV PRN (12:00)
[2023-01-29] MEDS ORDERED: ONDANSETRON HCL 4 MG/2 ML VIAL IV PRN (12:00)
[2023-01-29] MEDS ORDERED: NITROGLYCERIN 0.4 MG SL TAB SL PRN (12:00)
[2023-01-29 12:04] LABS: INR 1.16 (0.9-1.15); Partial Thromboplastin Time 29.8 SEC (24.5-34.5); Prothrombin Time 12.1 sec (9.3-11.8)
[2023-01-29] MEDS ORDERED: metroNIDAZOLE 500MG/100ML 100 ML IV ONE (12:15)
[2023-01-29 12:17] LABS: CRP High Sensitivity 10.9 mg/dL (<1.0)
[2023-01-29] MEDS: SODIUM CHLOR 0.9% PF (SALINE LOCK) 10ML VIAL/SYR IV SCH (14:05)
[2023-01-29] MEDS: SODIUM CHLORIDE 0.9% 1,000 ML IV SCH (15:59)
[2023-01-29] MEDS: metroNIDAZOLE 500MG/100ML 100 ML IV SCH (21:23)
[2023-01-29 23:32] VITALS: BP 159/74; PULSE 64; RESP 20; TEMP 98.2; O2SAT 95
[2023-01-30] VITALS (7 sets, daily range): BP systolic 106–143; BP diastolic 55–67; PULSE 55–66; RESP 14–20; TEMP 97.9–98.5; O2SAT 90–98
[2023-01-30] MEDS: SODIUM CHLOR 0.9% PF (SALINE LOCK) 10ML VIAL/SYR IV SCH ×4 (03:45→21:57)
[2023-01-30] MEDS: metroNIDAZOLE 500MG/100ML 100 ML IV SCH ×3 (03:51→20:10)
[2023-01-30] MEDS: SODIUM CHLORIDE 0.9% 1,000 ML IV SCH ×2 (05:23→06:48)
[2023-01-30 06:38] LABS: Amphetamine Screen, Urine Neg (NEGATIVE); Barbiturate Scree,Urine Neg (NEGATIVE); Benzodiazephine Screen, Urine Neg (NEGATIVE); Cannabinoid Screen, Urine Neg (NEGATIVE); Cocaine Screen, Urine Neg (NEGATIVE); Opiate Scree,Urine Neg (NEGATIVE); Phencyclidine Screen, Urine Neg (NEGATIVE)
[2023-01-30 06:49] LABS: Urine Bacteria NONE SEEN /hpf (None Seen); Urine Blood Negative /uL (Negative); Urine Clarity HAZY (Clear); Urine Color Yellow (Yellow); Urine Mucus FEW (None Seen); Urine Protein, UAD 1+ (Negative); Urine Specific Gravity 1.029 (1.001-1.035); Urine WBC 191 /hpf (0 - 5)
[2023-01-30 07:07] LABS: Free Thyroxine Index 1.7 (1.2-4.9); Thyroxine (T4) 7.5 ug/dL (4.5-12.0)
[2023-01-30 07:29] LABS: Basophils # (auto) 0.1 10 ^3/uL (0-0.2); Basophils % (auto) 0.8 % (0.0-2.0); Eosinophils # (auto) 0.2 10 ^3/uL (0-0.8); Eosinophils % (auto) 1.8 % (0.0-7.0); Hematocrit 41.5 % (36.0-46.0); Hemoglobin 14.1 g/dL (12.2-16.2); Lymphocytes # (auto) 2.1 10 ^3/uL (0.4-5.4); Mean Corpuscular Hemoglobin 29.9 pg (28.0-32.0); Mean Corpuscular Volume 87.9 fL (80.0-100.0); Monocytes # (auto) 0.6 10 ^3/uL (0-1.3); Monocytes % (auto) 6.9 % (0.0-12.0); Neutrophils # (auto) 5.7 10 ^3/uL (1.6-8.6); Neutrophils % (auto) 66.5 % (37.0-80.0); Nucleated Red Blood Cells % 0.1 %; Red Blood Cells 4.73 10^6/uL (4.0-5.20); Red Cell Distribution Width 13.5 % (11.8-14.3); White Blood Cell 8.6 10^3/uL (4.4-10.8)
[2023-01-30 07:38] LABS: Alanine Aminotransferase 17 U/L (7-40); Albumin 3.8 g/dL (3.2-4.8); Alkaline Phosphatase 49 U/L (46-116); Anion Gap 7 (5-15); Aspartate Aminotransferase 17 U/L (13-40); BUN/Creatinine Ratio 18.3 (10.0-20.0); Bilirubin, Total 1.6 mg/dL (0.2-1.0); Blood Urea Nitrogen 13 mg/dL (9-23); Calcium 9.2 mg/dL (8.5-10.1); Carbon Dioxide 28 mmol/L (20-30); Chloride 106 mmol/L (98-107); Glucose 86 mg/dL (74-106); Potassium 3.6 mmol/L (3.5-5.1); Sodium 141 mmol/L (136-145); Total Protein 6.2 g/dL (5.7-8.2)
[2023-01-30] MEDS: PARoxetine 20 MG TAB PO SCH (09:17)
[2023-01-30] MEDS: METOPROLOL SUCCINATE XL 50 MG TAB PO SCH (09:18)
[2023-01-30] MEDS: BENAZEPRIL HCL 10 MG TAB PO SCH (09:19)
[2023-01-30] MEDS: cefTRIAXone 1GM/50ML D5W 50 ML IV SCH (09:19)
[2023-01-30] MEDS: ACETAMINOPHEN 325 MG TAB PO PRN ×2 (12:06→20:27)
[2023-01-31] MEDS: metroNIDAZOLE 500MG/100ML 100 ML IV SCH ×3 (04:16→19:50)
[2023-01-31 05:00] VITALS: BP 136/61; PULSE 54; RESP 18; TEMP 98.1; O2SAT 90
[2023-01-31 06:16] LABS: Basophils # (auto) 0 10 ^3/uL (0-0.2); Basophils % (auto) 0.8 % (0.0-2.0); Eosinophils # (auto) 0.3 10 ^3/uL (0-0.8); Eosinophils % (auto) 4.7 % (0.0-7.0); Hematocrit 42.7 % (36.0-46.0); Hemoglobin 14.2 g/dL (12.2-16.2); Lymphocytes # (auto) 1.6 10 ^3/uL (0.4-5.4); Lymphocytes % (auto) 28.9 % (10.0-50.0); Mean Corpuscular Hemoglobin 29.6 pg (28.0-32.0); Mean Corpuscular Hgb Conc. 33.3 g/dL (32.0-36.0); Monocytes # (auto) 0.5 10 ^3/uL (0-1.3); Monocytes % (auto) 8.1 % (0.0-12.0); Neutrophils # (auto) 3.2 10 ^3/uL (1.6-8.6); Neutrophils % (auto) 57.5 % (37.0-80.0); Nucleated Red Blood Cells % 0.1 %; Red Cell Distribution Width 13.8 % (11.8-14.3); White Blood Cell 5.6 10^3/uL (4.4-10.8)
[2023-01-31 06:26] LABS: Alanine Aminotransferase 18 U/L (7-40); Albumin 3.8 g/dL (3.2-4.8); Alkaline Phosphatase 46 U/L (46-116); Anion Gap 7 (5-15); Aspartate Aminotransferase 14 U/L (13-40); BUN/Creatinine Ratio 17.1 (10.0-20.0); Blood Urea Nitrogen 12 mg/dL (9-23); Calcium 9.2 mg/dL (8.5-10.1); Carbon Dioxide 29 mmol/L (20-30); Chloride 106 mmol/L (98-107); Glucose 73 mg/dL (74-106); Potassium 3.7 mmol/L (3.5-5.1); Sodium 142 mmol/L (136-145)
[2023-01-31 06:27] LABS: Bilirubin, Total 0.8 mg/dL (0.2-1.0); Total Protein 6.2 g/dL (5.7-8.2)
[2023-01-31] MEDS: SODIUM CHLOR 0.9% PF (SALINE LOCK) 10ML VIAL/SYR IV SCH ×3 (06:30→22:12)
[2023-01-31] MEDS: SODIUM CHLORIDE 0.9% 1,000 ML IV SCH (07:15)
[2023-01-31 08:00] VITALS: BP 141/92; PULSE 57; PULSE 83; RESP 20; TEMP 98.2; O2SAT 97
[2023-01-31 09:00] VITALS: BP 141/92; PULSE 83; RESP 20; TEMP 98.2; O2SAT 97
[2023-01-31] MEDS: BENAZEPRIL HCL 10 MG TAB PO SCH (09:23)
[2023-01-31] MEDS: PARoxetine 20 MG TAB PO SCH (09:25)
[2023-01-31] MEDS: METOPROLOL SUCCINATE XL 50 MG TAB PO SCH (09:25)
[2023-01-31] MEDS: cefTRIAXone 1GM/50ML D5W 50 ML IV SCH (09:27)
[2023-01-31] MEDS: ACETAMINOPHEN 325 MG TAB PO PRN (09:37)
[2023-01-31 13:00] VITALS: BP 144/72; PULSE 63; RESP 18; TEMP 97.2; O2SAT 93
[2023-01-31 16:53] VITALS: BP 118/52; PULSE 78; RESP 18; TEMP 98.4; O2SAT 99
[2023-01-31 22:00] VITALS: BP 150/75; PULSE 67; RESP 16; TEMP 98.8; O2SAT 93
[2023-02-01] MEDS: metroNIDAZOLE 500MG/100ML 100 ML IV SCH (04:21)
[2023-02-01] MEDS: SODIUM CHLOR 0.9% PF (SALINE LOCK) 10ML VIAL/SYR IV SCH (04:22)
[2023-02-01 05:00] VITALS: BP 150/69; PULSE 67; RESP 16; TEMP 98.6; O2SAT 95
[2023-02-01 06:19] LABS: Basophils # (auto) 0.1 10 ^3/uL (0-0.2); Basophils % (auto) 0.9 % (0.0-2.0); Eosinophils # (auto) 0.3 10 ^3/uL (0-0.8); Eosinophils % (auto) 4.7 % (0.0-7.0); Hemoglobin 14.6 g/dL (12.2-16.2); Lymphocytes # (auto) 1.8 10 ^3/uL (0.4-5.4); Mean Corpuscular Hemoglobin 29.8 pg (28.0-32.0); Mean Corpuscular Hgb Conc. 33.9 g/dL (32.0-36.0); Monocytes # (auto) 0.5 10 ^3/uL (0-1.3); Monocytes % (auto) 8.5 % (0.0-12.0); Neutrophils # (auto) 2.8 10 ^3/uL (1.6-8.6); Neutrophils % (auto) 51.9 % (37.0-80.0); Nucleated Red Blood Cells % 0.2 %; Red Blood Cells 4.89 10^6/uL (4.0-5.20); Red Cell Distribution Width 13.4 % (11.8-14.3); White Blood Cell 5.4 10^3/uL (4.4-10.8)
[2023-02-01 08:00] VITALS: PULSE 79; RESP 18
[2023-02-01 08:30] VITALS: BP 159/80; PULSE 67; RESP 20; TEMP 97.6; O2SAT 92
[2023-02-01] MEDS ORDERED: hydrALAZINE HCL 20 MG/ML VL IV PRN (08:30)
[2023-02-01] MEDS: BENAZEPRIL HCL 10 MG TAB PO SCH (09:16)
[2023-02-01] MEDS: PARoxetine 20 MG TAB PO SCH (09:16)
[2023-02-01] MEDS: cefTRIAXone 1GM/50ML D5W 50 ML IV SCH (09:16)
[2023-02-01] MEDS: METOPROLOL SUCCINATE XL 50 MG TAB PO SCH (09:16)
[2023-02-01 12:30] VITALS: BP 158/77; PULSE 60; RESP 18; TEMP 97.9; O2SAT 100
[2023-02-01 16:24] VITALS: BP 167/71; PULSE 79
[2023-02-01] MEDS ORDERED: CIPR500T4 PO (16:33)
== END 2023-02-01 17:51 | disposition home or self-care (01) | DRG 392 ==
LOC: ER 07:46 → TELE 11:56 → TELE-WESTW 21:43 → WEST WING 01-31 15:49
PROVIDERS: ADMIT Internal Medicine; ATTEND Internal Medicine
DX: K57.32 Diverticulitis of large intestine without perforation or abscess without bleeding (principal); N39.0 Urinary tract infection, site not specified; I10 Essential (primary) hypertension; F41.9 Anxiety disorder, unspecified; Z90.49 Acquired absence of other specified parts of digestive tract; E86.0 Dehydration; E55.9 Vitamin D deficiency, unspecified; F11.10 Opioid abuse, uncomplicated; Z87.891 Personal history of nicotine dependence
CPT/HCPCS: 36415; 74176; 80053; 80061; 80307; 81001; 82270; 82306; 82607; 83605; 83690; 83735; 84443; 84484; 85025; 85610; 85730; 86141; 87040; 87081; 87086; 93005; 96374; G0378; J0696; J2405; J3490

== ENCOUNTER 2023-09-22 11:17 | Inpatient (IN) | payer OTHER, MEDICAID ==
[~2023-09-22] VITALS: Ht 175.3 cm; Wt 107.5 kg
[~2023-09-22 11:17] MED LIST changes: +CIPR500T4 PO; -LEVO500T91 PO; -MET500T PO; -NYS5LQ MT
[2023-09-22] MEDS: MORPHINE SULFATE 4 MG/ML SYR/VIAL IV ONE (11:45)
[2023-09-22 11:56] LABS: Basophils # (auto) 0.1 10 ^3/uL (0-0.2); Basophils % (auto) 0.8 % (0.0-2.0); Eosinophils # (auto) 0 10 ^3/uL (0-0.8); Eosinophils % (auto) 0.2 % (0.0-7.0); Hematocrit 48.5 % (36.0-46.0); Hemoglobin 16.8 g/dL (12.2-16.2); Lymphocytes % (auto) 29.4 % (10.0-50.0); Mean Corpuscular Hemoglobin 30.3 pg (28.0-32.0); Mean Corpuscular Hgb Conc. 34.6 g/dL (32.0-36.0); Mean Corpuscular Volume 87.6 fL (80.0-100.0); Monocytes % (auto) 14.9 % (0.0-12.0); Neutrophils # (auto) 3.6 10 ^3/uL (1.6-8.6); Neutrophils % (auto) 54.7 % (37.0-80.0); Nucleated Red Blood Cells % 0.1 %; Red Blood Cells 5.53 10^6/uL (4.0-5.20); Red Cell Distribution Width 13.8 % (11.8-14.3); White Blood Cell 6.7 10^3/uL (4.4-10.8)
[2023-09-22 12:16] LABS: Alanine Aminotransferase 22 U/L (7-40); Albumin 4.4 g/dL (3.2-4.8); Alkaline Phosphatase 48 U/L (46-116); Anion Gap 7 (5-15); Aspartate Aminotransferase 25 U/L (13-40); BUN/Creatinine Ratio 13.6 (10.0-20.0); Blood Urea Nitrogen 16 mg/dL (9-23); Calcium 9.5 mg/dL (8.7-10.4); Carbon Dioxide 28 mmol/L (20-30); Chloride 103 mmol/L (98-107); Glucose 117 mg/dL (74-106); Lipase 39 U/L (12-53); Potassium 3.5 mmol/L (3.5-5.1); Sodium 138 mmol/L (136-145); Total Protein 7.3 g/dL (5.7-8.2)
[2023-09-22] MEDS: PROCHLORPERAZINE EDISYLATE 5 MG/ML 2ML VIAL IV ONE (12:42)
[2023-09-22] MEDS: SODIUM CHLORIDE 0.9% 1,000 ML IVB ONE (12:43)
[2023-09-22 12:46] VITALS: PULSE 54; RESP 19; O2SAT 97
[2023-09-22] MEDS: metroNIDAZOLE 500MG/100ML 100 ML IV ONE (14:34)
[2023-09-22 14:40] LABS: Urine Bacteria FEW /hpf (None Seen); Urine Blood Negative /uL (Negative); Urine Clarity Turbid (Clear); Urine Color Dark-Yellow (Yellow); Urine Hyaline Cast MANY /lpf (0 - 2); Urine Mucus FEW (None Seen); Urine Protein, UAD 1+ (Negative); Urine Specific Gravity 1.028 (1.001-1.035); Urine Urobilinogen 4 mg/dL (Negative); Urine WBC 63 /hpf (0 - 5)
[2023-09-22] MEDS ORDERED: DOCUSATE SOD 100 MG CAP PO PRN (16:45)
[2023-09-22] MEDS ORDERED: HYDROcodone-ACET 5/325MG TAB PO PRN (16:45)
[2023-09-22] MEDS ORDERED: ONDANSETRON HCL 4 MG/2 ML VIAL IV PRN (16:45)
[2023-09-22] MEDS: ENOXAPARIN SOD 40 MG/0.4 ML SYRINGE SC SCH (16:49)
[2023-09-22] MEDS: cefTRIAXone 1GM/50ML D5W 50 ML IV SCH (16:49)
[2023-09-22] MEDS: metroNIDAZOLE 500MG/100ML 100 ML IV SCH (18:10)
[2023-09-22] MEDS: SODIUM CHLOR 0.9% PF (SALINE LOCK) 10ML VIAL/SYR IV SCH (22:22)
[2023-09-22 22:27] VITALS: BP 101/43; PULSE 70; RESP 18; O2SAT 98
[2023-09-22] MEDS: LOPERAMIDE HCL 2 MG CAP/TAB PO PRN (22:42)
[2023-09-23] MEDS ORDERED: ATOR20TA50 PO (02:51)
[2023-09-23] MEDS ORDERED: CHOL20007 PO (02:53)
[2023-09-23] MEDS ORDERED: HYDR25TA4 PO (02:53)
[2023-09-23 05:00] VITALS: BP 108/47; PULSE 65; RESP 18; TEMP 98.4; O2SAT 94
[2023-09-23 09:00] VITALS: BP 105/36; PULSE 66; RESP 17; TEMP 98.6; O2SAT 91
[2023-09-23 13:00] VITALS: BP 119/40; PULSE 72; RESP 18; TEMP 99; O2SAT 92
[2023-09-23] MEDS: ACETAMINOPHEN 325 MG TAB PO PRN (16:08)
[2023-09-23] MEDS: SODIUM CHLORIDE 0.9% 1,000 ML IV SCH (16:09)
[2023-09-23 17:00] VITALS: BP 114/56; PULSE 91; RESP 17; TEMP 97.8; O2SAT 91
[2023-09-23 21:00] VITALS: BP 132/70; PULSE 90; RESP 20; TEMP 98.8; O2SAT 94
[2023-09-24] VITALS (7 sets, daily range): BP systolic 121–144; BP diastolic 61–77; PULSE 67–98; RESP 18–20; TEMP 98.2–102.4; O2SAT 91–97
[2023-09-24 07:45] LABS: Alanine Aminotransferase 19 U/L (7-40); Alkaline Phosphatase 44 U/L (46-116); Anion Gap 9 (5-15); BUN/Creatinine Ratio 17.1 (10.0-20.0); Blood Urea Nitrogen 13 mg/dL (9-23); Calcium 9.1 mg/dL (8.7-10.4); Carbon Dioxide 27 mmol/L (20-30); Chloride 104 mmol/L (98-107); Glucose 87 mg/dL (74-106); Magnesium 2.1 mg/dL (1.6-2.6); Sodium 140 mmol/L (136-145)
[2023-09-24 07:46] LABS: Aspartate Aminotransferase 24 U/L (13-40)
[2023-09-24 07:47] LABS: Bilirubin, Total 0.7 mg/dL (0.2-1.0); Total Protein 6.8 g/dL (5.7-8.2)
[2023-09-24] MEDS: PARoxetine 20 MG TAB PO ONE (14:01)
[2023-09-24] MEDS: POTASSIUM CHL 20 Meq TABLET PO ONE (16:06)
[2023-09-24] MEDS: D5W/SOD CHL 0.45%/KCL 20MEQ 1,000 ML IV SCH (16:06)
[2023-09-25] VITALS (7 sets, daily range): BP systolic 122–164; BP diastolic 50–77; PULSE 81–114; RESP 17–22; TEMP 98–102.9; O2SAT 87–98
[2023-09-25] MEDS: hydrALAZINE HCL 20 MG/ML VL IV PRN (01:00)
[2023-09-25] MEDS: PARoxetine 20 MG TAB PO SCH (08:58)
[2023-09-25] MEDS ORDERED: BENZOCAINE & ANTIPYRINE OTIC(EAR) DROP 15ML RIGHT EAR PRN (09:15)
[2023-09-25] MEDS ORDERED: POTASSIUM CHL 20 Meq TABLET PO ONE (09:30)
[2023-09-25] MEDS ORDERED: guaiFENesin-DM 100/10mg/5ml SYR PO PRN (09:30)
[2023-09-25 11:04] LABS: Chloride 105 mmol/L (98-107); Potassium 3.1 mmol/L (3.5-5.1); Sodium 139 mmol/L (136-145)
[2023-09-25 11:05] LABS: Anion Gap 6 (5-15); Calcium 8.6 mg/dL (8.7-10.4); Carbon Dioxide 28 mmol/L (20-30)
[2023-09-25 11:10] LABS: Blood Urea Nitrogen 8 mg/dL (9-23); Glucose 126 mg/dL (74-106)
[2023-09-25 11:11] LABS: Magnesium 1.8 mg/dL (1.6-2.6)
[2023-09-25 11:12] LABS: BUN/Creatinine Ratio 13.3 (10.0-20.0)
[2023-09-25 11:37] LABS: COVID19 ANTIGEN SOFIA FIA NEGATIVE (NEGATIVE)
[2023-09-26 01:00] VITALS: BP 138/69; PULSE 70; RESP 16; TEMP 98.4; O2SAT 90
[2023-09-26 02:27] LABS: Rapid Influenza A Negative (Negative); Rapid Influenza B Negative (Negative)
[2023-09-26 05:00] VITALS: BP 145/62; PULSE 82; RESP 20; TEMP 99.8; O2SAT 92
[2023-09-26 06:47] LABS: Basophils # (auto) 0 10 ^3/uL (0-0.2); Basophils % (auto) 0.5 % (0.0-2.0); Eosinophils # (auto) 0 10 ^3/uL (0-0.8); Eosinophils % (auto) 0.2 % (0.0-7.0); Hematocrit 41.8 % (36.0-46.0); Hemoglobin 14.9 g/dL (12.2-16.2); Lymphocytes # (auto) 1.6 10 ^3/uL (0.4-5.4); Lymphocytes % (auto) 34.1 % (10.0-50.0); Mean Corpuscular Hgb Conc. 35.6 g/dL (32.0-36.0); Monocytes # (auto) 0.6 10 ^3/uL (0-1.3); Monocytes % (auto) 12.4 % (0.0-12.0); Neutrophils # (auto) 2.4 10 ^3/uL (1.6-8.6); Neutrophils % (auto) 52.8 % (37.0-80.0); Nucleated Red Blood Cells % 0.2 %; Red Blood Cells 4.81 10^6/uL (4.0-5.20); Red Cell Distribution Width 13.6 % (11.8-14.3); White Blood Cell 4.6 10^3/uL (4.4-10.8)
[2023-09-26 06:51] LABS: Alanine Aminotransferase 17 U/L (7-40); Albumin 3.5 g/dL (3.2-4.8); Alkaline Phosphatase 34 U/L (46-116); Anion Gap 10 (5-15); Aspartate Aminotransferase 23 U/L (13-40); Calcium 8.4 mg/dL (8.7-10.4); Carbon Dioxide 29 mmol/L (20-30); Chloride 103 mmol/L (98-107); Glucose 126 mg/dL (74-106); Potassium 3.2 mmol/L (3.5-5.1); Sodium 142 mmol/L (136-145)
[2023-09-26 06:52] LABS: Bilirubin, Total 0.5 mg/dL (0.2-1.0)
[2023-09-26 06:54] LABS: BUN/Creatinine Ratio 8.3 (10.0-20.0); Blood Urea Nitrogen < 5 mg/dL (9-23)
[2023-09-26 09:00] VITALS: BP 140/71; PULSE 103; RESP 17; TEMP 97.6; O2SAT 90
[2023-09-26] MEDS ORDERED: METR-344 PO (10:00)
[2023-09-26] MEDS ORDERED: LEVO500T91 PO (10:00)
[2023-09-26] MEDS: POTASSIUM CHL 20 Meq TABLET PO ONE (11:26)
== END 2023-09-26 12:52 | disposition home or self-care (01) | DRG 391 ==
LOC: ER 11:24 → OVERFLOW 16:36 → CENTRAL 09-23 02:43
PROVIDERS: ADMIT Internal Medicine; ATTEND Internal Medicine Geriatric Medicine
DX: K57.32 Diverticulitis of large intestine without perforation or abscess without bleeding (principal); N17.0 Acute kidney failure with tubular necrosis; N39.0 Urinary tract infection, site not specified; E86.0 Dehydration; I95.89 Other hypotension; Z20.822 Contact with and (suspected) exposure to COVID-19; E78.5 Hyperlipidemia, unspecified; E66.9 Obesity, unspecified; E87.6 Hypokalemia; J06.9 Acute upper respiratory infection, unspecified; H66.91 Otitis media, unspecified, right ear; E11.9 Type 2 diabetes mellitus without complications; I95.9 Hypotension, unspecified; I10 Essential (primary) hypertension; Z82.49 Family history of ischemic heart disease and other diseases of the circulatory system; Z79.82 Long term (current) use of aspirin; Z79.899 Other long term (current) drug therapy
CPT/HCPCS: 36415; 74176; 80048; 80053; 81001; 83605; 83690; 83735; 85025; 87040; 87086; 87426; 87804; G0378; J3490

== ENCOUNTER 2025-01-27 08:43 | Inpatient (IN) | payer MEDICARE, MEDICAID ==
[~2025-01-27] VITALS: Ht 175.3 cm; Wt 114.0 kg
[~2025-01-27 08:43] MED LIST changes: -ASPI1TAB19 PO; +ATOR20TA50 PO; +CHOL20007 PO; -CIPR500T4 PO; +HYDR25TA4 PO; +LEVO500T91 PO; +METR-344 PO
--- NOTE | 2025-01-27 09:14 | ED.PDOC ---
GI ASSESSMENT HPI Comments This is a 74 year old female presenting to the ED with chief complaint of abdominal pain. Patient reports that she has been experiencing 10/10 LLQ abdominal pain with associated nausea since yesterday. Patient relays that she has history of diverticulitis, believing she is having a flare up at this time. Patient denies any vomiting, diarrhea, hematemesis, melena, blood in stool, or fever. Chief Complaint: Abdominal Pain Time Seen by MD: 09:11 Primary Care Provider: RUSSELL Natarajan Notes: Nurses Notes, Medications, Allergies Allergies: Uncoded Allergies: OPIODS (Allergy, Unknown, 09/18/22) PATIENT STATES SHE DOES NOT TAKE OPIODS Home Meds Active Scripts Levofloxacin Hemihydrate (LEVOFLOXACIN) 500 Mg Tab, 1 TAB PO DAILY, #10 TAB Prov:NATALIIA IVY MD 09/26/23 Metronidazole (Flagyl) 500 Mg Tab, 1 TAB PO TID, #30 TAB Prov:NATALIIA IVY MD 09/26/23 Benazepril Hcl (Benazepril Hcl) 20 Mg Tab, 1 TAB PO DAILY, #30 TAB 5 Refills Prov:NATALIIA IVY MD 07/07/22 Metoprolol Succinate (Metoprolol Succinate Er) 25 Mg Tab, 1 TAB PO DAILY, #30 TAB 5 Refills Prov:NATALIIA IVY MD 07/07/22 Reported Medications Hydrochlorothiazide (Hydrochlorothiazide) 25 Mg Tab, 1 TAB PO DAILY, #30 TAB 5 Refills 09/23/23 Cholecalciferol (VITAMIN D3) 2,000 Unit Tab, 1 TAB PO DAILY, #30 TAB 5 Refills 09/23/23 Atorvastatin Calcium (ATORVASTATIN CALCIUM) 20 Mg Tab, 1 TAB PO DAILY, #30 TAB 5 Refills 09/23/23 Paroxetine (PAXIL TABLET) 20 Mg Tb, 1 TAB PO DAILY, #30 TAB 5 Refills 07/09/21 Information Source: Patient Mode of Arrival: Ambulatory Timing: Days Duration: Since onset Prehospital treatment: None Quality: Sharp Vomitus: None Stool: Normal Severity: Moderate Recent: None Recent Hx of: None Pain Location: LLQ Modifying Factors: Nothing Associated sign and symptoms: Nausea, Abdominal Pain Past Medical History PAST MEDICAL HISTORY: Anxiety, HTN, UTI'S Past Medical History (Other): Diverticulitis Surgical History: Cholecystectomy, , Tonsillectomy FOWL BLOOD TESTER History: No Pertinent FOWL BLOOD TESTER History Family History Family History: No family hx of Cancer, Family hx of DM, Family hx of heart krysten Social History Smoker: Non-Smoker, Quit Greater Than 1 Year Alcohol: Denies ETOH Use Drugs: Denies Drug Use Lives In: Home Constitutional: denies: chills, diaphoresis, fatigue, fever, malaise, sweats, weakness, others EENTM: denies: blurred vision, double vision, ear bleeding, ear discharge, ear drainage, ear pain, ear ringing, eye pain, eye redness, hearing loss, mouth pain, mouth swelling, nasal discharge, nose bleeding, nose congestion, nose pain, photophobia, tearing, throat pain, throat swelling, voice changes, others Respiratory: denies: cough, hemoptysis, orthopnea, SOB at rest, shortness of breath, SOB with excertion, stridor, wheezing, others Cardiovascular: denies: chest pain, dizzy spells, diaphoresis, Dyspnea on exertion, edema, irregular heart beat, left arm pain, lightheadedness, palpitations, PND, syncope, others Gastrointestinal: reports: abdominal pain, nausea; denies: abdomen distended, blood streaked bowels, constipated, diarrhea, dysphagia, difficulty swallowing, hematemesis, melena, poor appetite, poor fluid intake, rectal bleeding, rectal pain, vomiting, others Genitourinary: denies: abnormal vagina bleeding, burning, dyspareunia, dysuria, flank pain, frequency, hematuria, incontinence, pain, , vagina discharge, urgency, others Neurological: denies: dizziness, fainting, headache, left sided numbness, left sided weakness, numbness, paresthesia, pre-existing deficit, right sided numbness, right sided weakness, seizure, speech problems, tingling, tremors, weakness, others Musculoskeletal: denies: back pain, gout, joint pain, joint swelling, muscle pain, muscle stiffness, neck pain, others Integumetry: denies: bruises, change in color, change in hair/nails, dryness, laceration, lesions, lumps, rash, wounds, others Allergic/Immunocompromised: denies: Difficulty Healing, Frequent Infections, Hives, Itching, others Hematologic/Lymphatic: denies: anemia, blood clots, easy bleeding, easy bruising, swollen glands, others Endocrine: denies: excessive hunger, excessive sweating, excessive thirst, excessive urination, flushing, intolerance to cold, intolerance to heat, unexplained weight gain, unexplained weight loss, others Psychiatric: denies: anxiety, bipolar disorder, depression, hopeless, panic disorder, schizophrenia, sleepless, suicidal, others All Other Systems: Reviewed and Negative Physical Exam General Appearance: Moderate Distress, Normal HEENT: Normal ENT Inspection, Pharynx Normal, TMs Normal Neck: Full Range of Motion, Non-Tender, Normal, Normal Inspection Respiratory: Chest Non-Tender, Lungs Clear, No Accessory Muscle Use, No Respiratory Distress, Normal Breath Sounds Cardiovascular: No Edema, No JVD, No Murmur, No Gallop, Normal Peripheral Pulses, Regular Rate/Rhythm Breast Exam: Deferred Gastrointestinal: LLQ, No Organomegaly, No Pulsatile Mass, Normal Bowel Sounds, Soft, Tenderness (LLQ tenderness) Genitalia: Deferred Pelvic: Deferred Rectal: Deferred Extremities: No calf tenderness, Normal capillary refill, Normal inspection, Normal range of motion, Non-tender, No pedal edema Musculoskeletal : Apperance: Normal Neurologic: Alert, casting agent II-XII nml as Tested, No Motor Deficits, Normal Affect, Normal Mood, No Sensory Deficits Cerebellar Function: Normal Reflexes: Normal Skin: Dry, Normal Color, Warm Peripheral Pulses: 3+ Radial (R), 3+ Radial (L) Lymphatic: No Adenopathy Was a procedure done? Was a procedure done?: No GI differential Dx Differential Diagnosis: Constipation, Diverticular disease, Esophagitis, Gastritis/PUD, Gastroenteritis X-Ray, Labs, Meds, VS Vital Signs Date Time Temp Pulse Resp B/P (MAP) Pulse Ox O2 Delivery O2 Flow Rate FiO2 01/27/25 11:39 98.5 60 18 109/51 (70) 92 98.5 01/27/25 09:21 95 18 95 Room Air 01/27/25 09:21 98.5 95 18 139/73 (95) 95 98.5 01/27/25 08:45 98.2 102 16 132/85 93 98.2 Lab Test 01/27/25 09:01 Range/Units White Blood Count 15.5 H 4.4-10.8 10^3/uL Red Blood Count 5.49 H 4.0-5.20 10^6/uL Hemoglobin 16.3 H 12.2-16.2 g/dL Hematocrit 47.4 H 36.0-46.0 % Mean Corpuscular Volume 86.5 80.0-100.0 fL Mean Corpuscular Hemoglobin 29.7 28.0-32.0 pg Mean Corpuscular Hemoglobin Concent 34.3 32.0-36.0 g/dL Red Cell Distribution Width 14.1 11.8-14.3 % Platelet Count 216 140-450 10^3/uL Mean Platelet Volume 7.9 6.9-10.8 fL Neutrophils (%) (Auto) 70.8 37.0-80.0 % Lymphocytes (%) (Auto) 20.1 10.0-50.0 % Monocytes (%) (Auto) 8.1 0.0-12.0 % Eosinophils (%) (Auto) 0.2 0.0-7.0 % Basophils (%) (Auto) 0.8 0.0-2.0 % Neutrophils # (Auto) 11.0 H 1.6-8.6 10 ^3/uL Lymphocytes # (Auto) 3.1 0.4-5.4 10 ^3/uL Monocytes # (Auto) 1.3 0-1.3 10 ^3/uL Eosinophils # (Auto) 0 0-0.8 10 ^3/uL Basophils # (Auto) 0.1 0-0.2 10 ^3/uL Nucleated Red Blood Cells 0.0 % Sodium Level 140 136-145 mmol/L Potassium Level 3.7 3.5-5.1 mmol/L Chloride Level 105 98-107 mmol/L Carbon Dioxide Level 25 20-31 mmol/L Anion Gap 10 5-15 Blood Urea Nitrogen 15 9-23 mg/dL Creatinine 0.84 0.550-1.02 mg/dL Glomerular Filtration Rate Calc 74 >90 mL/min BUN/Creatinine Ratio 17.9 10.0-20.0 Serum Glucose 127 H 74-106 mg/dL Calcium Level 9.7 8.7-10.4 mg/dL Total Bilirubin 3.0 H 0.2-1.0 mg/dL Aspartate Amino Transferase (AST) 18 13-40 U/L Alanine Aminotransferase (ALT) 20 7-40 U/L Alkaline Phosphatase 64 46-116 U/L Total Protein 7.6 5.7-8.2 g/dL Albumin 4.4 3.2-4.8 g/dL Current Medications Medications (Trade) Dose Ordered Sig/Anderson Route Start Time Stop Time Status Last Admin Ketorolac Tromethamine (Toradol Injection) 30 mg ONCE ONCE IV 01/27/25 09:45 01/27/25 09:46 DC 01/27/25 10:25 Ondansetron HCl (Zofran) 4 mg ONCE ONCE IV 01/27/25 09:45 01/27/25 09:46 DC 01/27/25 10:25 Sodium Chloride 1,000 ml @ 1,000 mls/hr Q1H ONCE IV 01/27/25 09:45 01/27/25 10:44 DC 01/27/25 10:03 Sodium Chloride 1,000 ml @ 150 mls/hr Q6H40M ONCE IV 01/27/25 09:45 01/27/25 16:24 01/27/25 11:18 Patient alert. Complaining of abdominal pain. Vitals stable. Answering all questions. Abdomen tender in the left lower quadrant. Was given pain medication. Establish intravenous access. Was given fluids. CT scan of the abdomen reviewed diverticulitis. Was given Rocephin. Was given Flagyl. WBC elevated. Sepsis protocol. Explained to the patient. Continue monitoring. Time of 1ST Reevaluation: 10:10 Reevaluation 1ST: Unchanged Patient Education/Counseling: Diagnosis, Treatment Family Education/Counseling: No Family Present SEPSIS Sepsis Screen Date sepsis recognized/suspect: Jan 27, 2025 Time Sepsis recognized/suspect: 0846 Recent Procedure: No On Antibiotic Therapy: No Respiratory Rate >20: No Heart Rate >90: Yes Temp<36 C (96.8 F) or >38.3 C: No SBP <90 or MAP <65 mmHG: No New Acute Mental Status Change: No Is the patient on CPAP, BIPAP,: No Physician Orders Urinalysis (01/27/25 08:53) Ct Ab Pel Wo Con-No Oral Or Iv (01/27/25 09:33) Sodium Chloride 0.9% (01/27/25 09:45) Vital Signs Date Time Temp Pulse Resp B/P (MAP) Pulse Ox O2 Delivery O2 Flow Rate FiO2 01/27/25 11:39 98.5 60 18 109/51 (70) 92 98.5 01/27/25 09:21 95 18 95 Room Air 01/27/25 09:21 98.5 95 18 139/73 (95) 95 98.5 01/27/25 08:45 98.2 102 16 132/85 93 98.2 Laboratory Tests Test 01/27/25 09:01 White Blood Count 15.5 10^3/uL (4.4-10.8) H Medications Medications Dose Ordered Sig/Anderson Route Start Time Stop Time Status Last Admin Dose Admin Ketorolac Tromethamine 30 mg ONCE ONCE IV 01/27/25 09:45 01/27/25 09:46 DC 01/27/25 10:25 Ondansetron HCl 4 mg ONCE ONCE IV 01/27/25 09:45 01/27/25 09:46 DC 01/27/25 10:25 Sodium Chloride 1,000 ml @ 150 mls/hr Q6H40M ONCE IV 01/27/25 09:45 01/27/25 16:24 01/27/25 11:18 Sodium Chloride 1,000 ml @ 1,000 mls/hr Q1H ONCE IV 01/27/25 09:45 01/27/25 10:44 DC 01/27/25 10:03 Departure 1 Departure Time of Disposition: 12:19 Impression: Primary Impression: Acute diverticulitis Additional Impression: Sepsis, unspecified organism Qualified Codes: A41.9 - Sepsis, unspecified organism Disposition: ADMITTED INPATIENT Admit to: Med Surg Condition: Guarded Critical Care Note Critical Care Time?: Yes (90 min-critical care time only) Stability Stability form required: No Heart Score Heart Score: Heart Score Response (Comments) Value History N/A 0 EKG N/A 0 Age N/A 0 Risk Factors N/A 0 Troponin N/A 0 Total 0 I personally scribed for SONIA ARCE MD ([email or web address]) on 01/27/25 at 09:14. Electronically submitted by Matt Jimenez ([email or web address]). SONIA ARCE MD Jan 27, 2025 09:14
[2025-01-27 09:30] LABS: Hematocrit 47.4 % (36.0-46.0); Hemoglobin 16.3 g/dL (12.2-16.2); Mean Corpuscular Hemoglobin 29.7 pg (28.0-32.0); Mean Corpuscular Volume 86.5 fL (80.0-100.0); Nucleated Red Blood Cells % 0.0 %
[2025-01-27 09:44] LABS: Alanine Aminotransferase 20 U/L (7-40); Albumin 4.4 g/dL (3.2-4.8); Alkaline Phosphatase 64 U/L (46-116); Anion Gap 10 (5-15); BUN/Creatinine Ratio 17.9 (10.0-20.0); Blood Urea Nitrogen 15 mg/dL (9-23); Calcium 9.7 mg/dL (8.7-10.4); Carbon Dioxide 25 mmol/L (20-31); Chloride 105 mmol/L (98-107); Potassium 3.7 mmol/L (3.5-5.1); Sodium 140 mmol/L (136-145); Total Protein 7.6 g/dL (5.7-8.2)
[2025-01-27 09:45] LABS: Bilirubin, Total 3.0 mg/dL (0.2-1.0); Glucose 127 mg/dL (74-106)
[2025-01-27] MEDS: SODIUM CHLORIDE 0.9% 1,000 ML IV ONE ×3 (10:03→13:22)
[2025-01-27] MEDS: KETOROLAC TROMETH 30 MG/ML 1ML VIAL IV ONE (10:25)
[2025-01-27] MEDS: ONDANSETRON HCL 4 MG/2 ML VIAL IV ONE (10:25)
--- NOTE | 2025-01-27 10:28 | DVH ---
EXAM: CT CT AB PEL WO CON-NO ORAL OR IV HISTORY: diverticulitis Comparison Study: CT CT AB PEL WO CON-NO ORAL OR IV on DOS: 09/22/23 Exam Date: 01/27/2025 09:42 AM Radiation Dose Information: CT Dose: CTDI volume is 27 mGy. Dose-length product is 1485 mGy*cm Technique: Multidetector CT of the abdomen and pelvis was performed. Imaging was performed without IV contrast. Axial, coronal and sagittal multiplanar reformats were obtained from the axial data set by the technologist. Findings: Lack of intravenous contrast compromises evaluation of perfusion and for isodense lesions. Lower chest: Clear. Liver: Unremarkable Biliary system: Surgically absent gallbladder Spleen: Unremarkable Pancreas: Unremarkable. Adrenals: Unremarkable. Kidneys and ureters: No hydronephrosis Bowel: No obstruction. Acute diverticulitis involving the sigmoid colon with diffuse wall thickening and surrounding inflammatory changes as well as ill- defined fluid. No definite loculated collection. The left ovary abuts this region as seen before. Bladder: Unremarkable Reproductive organs: No abnormal mass. Lymph nodes: Unremarkable. Peritoneum: Unremarkable Vessels: Patency not evaluated on this noncontrast study. Bones and soft tissue: No aggressive osseous lesion IMPRESSION: Acute sigmoid diverticulitis with diffuse surrounding inflammatory changes as well as ill-defined fluid. No drainable fluid collection. The left ovary abuts the region of inflammation, similiar to prior.
[2025-01-27] MEDS ORDERED: SODIUM CHLORIDE 0.9% 1,000 ML IV ONE (12:30)
[2025-01-27] MEDS ORDERED: ACETAMINOPHEN 325 MG TAB PO PRN (12:30)
--- NOTE | 2025-01-27 12:35 | DVHHP2 ---
History of Present Illness Reason for Visit: Abdominal pain History of Present Illness Angelika Tang is a 74-year-old female with past medical history of anxiety, hypertension, UTIs, diverticulitis, cholecystectomy, , and tonsillectomy who presents to the ED with abdominal pain with nausea that began yesterday radiating to her left flank. Patient reports the pain is 5/10 sharp and intermittent. Patient reports that the last meal she has 2 days ago and was fried chicken. Also reports that she had a normal bowel movement today. Patient reports that when she has a flare-up she has always been admitted. Patient reports that there are no triggering or alleviating factors. Patient denies any recent trauma or injury, recent sick contacts, recent travels, recent ingestion of spoiled food, chest pain, shortness of breath, fever, chills, lightheadedness, weakness, dizziness, diarrhea, or urinary symptoms. Cardiovascular: HTN Psych: Anxiety Renal/: UTI Past Medical History Diverticulitis Past Surgical History: Cholecystectomy, , Tonsillectomy Family History: None Smoke: No ALCOHOL: none Drugs: None Lives: Alone Domestic Violence: Neg Review of Systems Gastrointestinal: Abdominal Pain Allergies: Uncoded Allergies: OPIODS (Allergy, Unknown, 09/18/22) PATIENT STATES SHE DOES NOT TAKE OPIODS Exam Vital Signs Vital Signs Date Time Temp Pulse Resp B/P (MAP) Pulse Ox O2 Delivery O2 Flow Rate FiO2 01/27/25 11:39 98.5 60 18 109/51 (70) 92 98.5 01/27/25 09:21 Room Air General Appearance: Alert, Oriented X3, Cooperative, No acute distress HEENT: Atraumatic, PERRLA, EOMI, Mucous membr. moist/pink Respiratory: Clear to auscultation, Normal air movement Cardiovascular: Normal S1, Normal S2, No murmurs Abdominal: Soft Extremities: No clubbing, No cyanosis Neuro: Normal speech, Strength at 5/5 X4 ext, Normal tone, Sensation intact Psych/Mental Status: Mental status NL, Mood NL Labs/Xrays Labs Test 01/27/25 09:01 Range/Units White Blood Count 15.5 H 4.4-10.8 10^3/uL Red Blood Count 5.49 H 4.0-5.20 10^6/uL Hemoglobin 16.3 H 12.2-16.2 g/dL Hematocrit 47.4 H 36.0-46.0 % Mean Corpuscular Volume 86.5 80.0-100.0 fL Mean Corpuscular Hemoglobin 29.7 28.0-32.0 pg Mean Corpuscular Hemoglobin Concent 34.3 32.0-36.0 g/dL Red Cell Distribution Width 14.1 11.8-14.3 % Platelet Count 216 140-450 10^3/uL Mean Platelet Volume 7.9 6.9-10.8 fL Neutrophils (%) (Auto) 70.8 37.0-80.0 % Lymphocytes (%) (Auto) 20.1 10.0-50.0 % Monocytes (%) (Auto) 8.1 0.0-12.0 % Eosinophils (%) (Auto) 0.2 0.0-7.0 % Basophils (%) (Auto) 0.8 0.0-2.0 % Neutrophils # (Auto) 11.0 H 1.6-8.6 10 ^3/uL Lymphocytes # (Auto) 3.1 0.4-5.4 10 ^3/uL Monocytes # (Auto) 1.3 0-1.3 10 ^3/uL Eosinophils # (Auto) 0 0-0.8 10 ^3/uL Basophils # (Auto) 0.1 0-0.2 10 ^3/uL Nucleated Red Blood Cells 0.0 % Sodium Level 140 136-145 mmol/L Potassium Level 3.7 3.5-5.1 mmol/L Chloride Level 105 98-107 mmol/L Carbon Dioxide Level 25 20-31 mmol/L Anion Gap 10 5-15 Blood Urea Nitrogen 15 9-23 mg/dL Creatinine 0.84 0.550-1.02 mg/dL Glomerular Filtration Rate Calc 74 >90 mL/min BUN/Creatinine Ratio 17.9 10.0-20.0 Serum Glucose 127 H 74-106 mg/dL Calcium Level 9.7 8.7-10.4 mg/dL Total Bilirubin 3.0 H 0.2-1.0 mg/dL Aspartate Amino Transferase (AST) 18 13-40 U/L Alanine Aminotransferase (ALT) 20 7-40 U/L Alkaline Phosphatase 64 46-116 U/L Total Protein 7.6 5.7-8.2 g/dL Albumin 4.4 3.2-4.8 g/dL EXAM: CT CT AB PEL WO CON-NO ORAL OR IV HISTORY: diverticulitis Comparison Study: CT CT AB PEL WO CON-NO ORAL OR IV on DOS: 09/22/23 Exam Date: 01/27/2025 09:42 AM Radiation Dose Information: CT Dose: CTDI volume is 27 mGy. Dose-length product is 1485 mGy*cm Technique: Multidetector CT of the abdomen and pelvis was performed. Imaging was performed without IV contrast. Axial, coronal and sagittal multiplanar reformats were obtained from the axial data set by the technologist. Findings: Lack of intravenous contrast compromises evaluation of perfusion and for isodense lesions. Lower chest: Clear. Liver: Unremarkable Biliary system: Surgically absent gallbladder Spleen: Unremarkable Pancreas: Unremarkable. Adrenals: Unremarkable. Kidneys and ureters: No hydronephrosis Bowel: No obstruction. Acute diverticulitis involving the sigmoid colon with diffuse wall thickening and surrounding inflammatory changes as well as ill- defined fluid. No definite loculated collection. The left ovary abuts this mehdi on as seen before. Bladder: Unremarkable Reproductive organs: No abnormal mass. Lymph nodes: Unremarkable. Peritoneum: Unremarkable Vessels: Patency not evaluated on this noncontrast study. Bones and soft tissue: No aggressive osseous lesion IMPRESSION: Acute sigmoid diverticulitis with diffuse surrounding inflammatory changes as well as ill-defined fluid. No drainable fluid collection. The left ovary abuts the region of inflammation, similiar to prior. SEPSIS Sepsis Screen Date sepsis recognized/suspect: Jan 27, 2025 Time Sepsis recognized/suspect: 0846 Recent Procedure: No On Antibiotic Therapy: No Respiratory Rate >20: No Heart Rate >90: Yes Temp<36 C (96.8 F) or >38.3 C: No SBP <90 or MAP <65 mmHG: No New Acute Mental Status Change: No Is the patient on CPAP, BIPAP,: No Physician Orders Urinalysis (01/27/25 08:53) Ct Ab Pel Wo Con-No Oral Or Iv (01/27/25 09:33) Sodium Chloride 0.9% (01/27/25 09:45) Blood Culture (01/27/25 12:21) Lactic Acid W/ Reflex Order (01/27/25 12:21) Ceftriaxone 1gm/50ml (Rocephin) (01/27/25 12:30) Metronidazole 500mg/100ml (Flagyl 500mg/ (01/27/25 12:30) Sodium Chloride 0.9% (01/27/25 12:30) Sodium Chloride 0.9% (01/27/25 12:30) Vital Signs Date Time Temp Pulse Resp B/P (MAP) Pulse Ox O2 Delivery O2 Flow Rate FiO2 01/27/25 11:39 98.5 60 18 109/51 (70) 92 98.5 01/27/25 09:21 95 18 95 Room Air 01/27/25 09:21 98.5 95 18 139/73 (95) 95 98.5 01/27/25 08:45 98.2 102 16 132/85 93 98.2 Laboratory Tests Test 01/27/25 09:01 White Blood Count 15.5 10^3/uL (4.4-10.8) H Medications Medications Dose Ordered Sig/Anderson Route Start Time Stop Time Status Last Admin Dose Admin Ketorolac Tromethamine 30 mg ONCE ONCE IV 01/27/25 09:45 01/27/25 09:46 DC 01/27/25 10:25 30 MG Ondansetron HCl 4 mg ONCE ONCE IV 01/27/25 09:45 01/27/25 09:46 DC 01/27/25 10:25 4 MG Sodium Chloride 1,000 ml @ 150 mls/hr Q6H40M ONCE IV 01/27/25 09:45 01/27/25 16:24 01/27/25 11:18 150 MLS/HR Sodium Chloride 1,000 ml @ 1,000 mls/hr Q1H ONCE IV 01/27/25 09:45 01/27/25 10:44 DC 01/27/25 10:03 1,000 MLS/HR Assessment/Plan Assessment/Plan Assessment Intractable abdominal pain with nausea secondary to acute sigmoid diverticulitis with diffuse surrounding inflammatory changes as well as ill-defined fluid Leukocytosis secondary to diverticulitis Hyperbilirubinemia Obesity History of anxiety History of hypertension History of UTIs History of cholecystectomy History of History of tonsillectomy Plan Admit to med surge Antiemetics Pain management Trend T bili IV antibiotics-Flagyl + ceftriaxone NS 2 L given ED Lactic level Blood cultures CT abdomen and pelvis noted UA UDS Lipase Alcohol screen Acute hepatitis panel IV fluids Diet Home medications reconciled DVT prophylaxis-not indicated patient ambulating PUD prophylaxis-PPIs Discussed plan of care with patient nurse Counseled patient on lifestyle modifications, diet, and exercise [id number] Preventive counseling healthy eating habits, physical activity, and regular checkups Plan discussed with: Patient Date of Service: Jan 27, 2025 Billing Provider: AMANDA RUSH Common Visit Codes: [id number] INP/OBS CARE (HIGH) Secondary Visit Codes: [id number] COUNSELING IND AMANDA RUSH Jan 27, 2025 12:35
[2025-01-27] MEDS: SODIUM CHLORIDE 0.9% 1,000 ML IV SCH (13:57)
[2025-01-27 14:07] LABS: Hepatitis B Surface Antigen Negative (Negative)
[2025-01-27 15:15] VITALS: BP 145/65; PULSE 54; RESP 16; TEMP 97.6; O2SAT 93
--- NOTE | 2025-01-27 15:49 | DVHHP2 ---
Admitting Diagnosis: Ms. Tang, a female with history of diverticulitis, hypertension, hypercholesterolemia, and anxiety, presented to the emergency room with abdominal pain. She suspected a diverticulitis flare but denied fever, vomiting, diarrhea, or blood in stool. History of Present Illness Ms. Tang, a female with history of diverticulitis, hypertension, hypercholesterolemia, and anxiety, presented to the emergency room with abdominal pain. She suspected a diverticulitis flare but denied fever, vomiting, diarrhea, or blood in stool. Her medications included benazepril and metoprolol for hypertension. Physical examination revealed no acute distress, normal cardiovascular findings, and no respiratory distress. Past Medical History Diverticulitis HTN HLD Anxiety Past Surgical History unknown Social History Smoker: Non-Smoker, Quit Greater Than 1 Year Alcohol: Denies ETOH Use Drugs: Denies Drug Use Lives In: Home Constitutional: denies: chills, diaphoresis, fatigue, fever, malaise, sweats, weakness, others EENTM: denies: blurred vision, double vision, ear bleeding, ear discharge, ear drainage, ear pain, ear ringing, eye pain, eye redness, hearing loss, mouth farida n, mouth swelling, nasal discharge, nose bleeding, nose congestion, nose pain, photophobia, tearing, throat pain, throat swelling, voice changes, others Respiratory: denies: cough, hemoptysis, orthopnea, SOB at rest, shortness of breath, SOB with excertion, stridor, wheezing, others Cardiovascular: denies: chest pain, dizzy spells, diaphoresis, Dyspnea on exertion, edema, irregular heart beat, left arm pain, lightheadedness, palpitations, PND, syncope, others Gastrointestinal: reports: abdominal pain, nausea; denies: abdomen distended, blood streaked bowels, constipated, diarrhea, dysphagia, difficulty swallowing, hematemesis, melena, poor appetite, poor fluid intake, rectal bleeding, rectal pain, vomiting, others Genitourinary: denies: abnormal vagina bleeding, burning, dyspareunia, dysuria, flank pain, frequency, hematuria, incontinence, pain, , vagina discharge, urgency, others Neurological: denies: dizziness, fainting, headache, left sided numbness, left sided weakness, numbness, paresthesia, pre-existing deficit, right sided numbness, right sided weakness, seizure, speech problems, tingling, tremors, weakness, others Musculoskeletal: denies: back pain, gout, joint pain, joint swelling, muscle pain, muscle stiffness, neck pain, others Integumetry: denies: bruises, change in color, change in hair/nails, dryness, laceration, lesions, lumps, rash, wounds, others Allergic/Immunocompromised: denies Hematologic/Lymphatic: denies: anemia, blood clots, easy bleeding, easy bruising, swollen glands, others Endocrine: denies: excessive hunger, excessive sweating, excessive thirst, excessive urination, flushing, intolerance to cold, intolerance to heat, unexplained weight gain, unexplained weight loss, others Psychiatric: Hx of anxiety All Other Systems: Reviewed and Negative Patient Family History: Diabetes mellitus grandmother, Onset:Unknown FH: diverticulitis G8 MOTHER Hypertension grandfather Allergies: Uncoded Allergies: OPIODS (Allergy, Unknown, 09/18/22) PATIENT STATES SHE DOES NOT TAKE OPIODS Allergies Opioids Home Meds Active Scripts Levofloxacin Hemihydrate (LEVOFLOXACIN) 500 Mg Tab, 1 TAB PO DAILY, #10 TAB Prov:NATALIIA IVY MD 09/26/23 Metronidazole (Flagyl) 500 Mg Tab, 1 TAB PO TID, #30 TAB Prov:NATALIIA IVY MD 09/26/23 Benazepril Hcl (Benazepril Hcl) 20 Mg Tab, 1 TAB PO DAILY, #30 TAB 5 Refills Prov:NATALIIA IVY MD 07/07/22 Metoprolol Succinate (Metoprolol Succinate Er) 25 Mg Tab, 1 TAB PO DAILY, #30 TAB 5 Refills Prov:NATALIIA IVY MD 07/07/22 Reported Medications Hydrochlorothiazide (Hydrochlorothiazide) 25 Mg Tab, 1 TAB PO DAILY, #30 TAB 5 Refills 09/23/23 Cholecalciferol (VITAMIN D3) 2,000 Unit Tab, 1 TAB PO DAILY, #30 TAB 5 Refills 09/23/23 Atorvastatin Calcium (ATORVASTATIN CALCIUM) 20 Mg Tab, 1 TAB PO DAILY, #30 TAB 5 Refills 09/23/23 Paroxetine (PAXIL TABLET) 20 Mg Tb, 1 TAB PO DAILY, #30 TAB 5 Refills 07/09/21 Current Medications Current Medications Medications (Trade) Dose Ordered Sig/Anderson Route PRN Reason Start Time Stop Time Status Last Admin Metronidazole 100 ml @ 100 mls/hr Q8HR IV 01/27/25 22:00 Ceftriaxone Sodium 50 ml @ 100 mls/hr DAILY@09 IV 01/28/25 09:00 Ketorolac Tromethamine (Toradol Injection) 7.5 mg Q6HPRN PRN IV MODERATE PAIN (4-6 PAIN SCALE) 01/27/25 16:30 02/01/25 16:29 Ketorolac Tromethamine (Toradol Injection) 15 mg Q6HPRN PRN IV SEVERE PAIN (7-10 PAIN SCALE) 01/27/25 16:30 02/01/25 16:29 Sodium Chloride 1,000 ml @ 120 mls/hr Q8H20M IV 01/27/25 12:30 01/27/25 13:57 Ondansetron HCl (Zofran) 4 mg Q4HP PRN IV NAUSEA / VOMITING 01/27/25 12:30 Acetaminophen (Tylenol Tablet) 650 mg Q6HP PRN PO PAIN SCALE 1-3 OR TEMP>100.4 01/27/25 12:30 Atorvastatin Calcium (Lipitor) 20 mg HS PO 01/27/25 22:00 Hydrochlorothiazide (hydroCHLOROthiazide TABLET) 25 mg DAILY PO 01/28/25 10:00 Paroxetine HCl (Paxil Tablet) 20 mg DAILY PO 01/28/25 10:00 Benazepril HCl (Lotensin Tablet) 20 mg DAILY PO 01/28/25 10:00 Cholecalciferol (Vitamin D3 Tablet) 2,000 unit DAILY PO 01/28/25 10:00 Metoprolol Succinate (Toprol Xl) 25 mg DAILY PO 01/28/25 10:00 Vital Signs Vital Signs Date Time Temp Pulse Resp B/P (MAP) Pulse Ox O2 Delivery O2 Flow Rate FiO2 01/27/25 15:15 97.6 54 16 145/65 (91) 93 97.6 01/27/25 09:21 Room Air Physical Exam General Appearance: Moderate Distress, Normal HEENT: Normal ENT Inspection, Pharynx Normal, TMs Normal Neck: Full Range of Motion, Non-Tender, Normal, Normal Inspection Respiratory: Chest Non-Tender, Lungs Clear, No Accessory Muscle Use, No Respiratory Distress, Normal Breath Sounds Cardiovascular: No Edema, No JVD, No Murmur, No Gallop, Normal Peripheral Pulses, Regular Rate/Rhythm Breast Exam: Deferred Gastrointestinal: LLQ, No Organomegaly, No Pulsatile Mass, Normal Bowel Sounds, Soft, Tenderness with palpation Genitalia: Deferred Pelvic: Deferred Rectal: Deferred Extremities: No calf tenderness, Normal capillary refill, Normal inspection, Normal range of motion, Non-tender, No pedal edema Musculoskeletal : Apperance: Normal Neurologic: Alert, manager surgery II-XII nml as Tested, No Motor Deficits, Normal Affect, Normal Mood, No Sensory Deficits Cerebellar Function: Normal Reflexes: Normal Skin: Dry, Normal Color, Warm Peripheral Pulses: 3+ Radial (R), 3+ Radial (L) Lymphatic: No Adenopathy SEPSIS Sepsis Screen Date sepsis recognized/suspect: Jan 27, 2025 Time Sepsis recognized/suspect: 845 Recent Procedure: No On Antibiotic Therapy: No Respiratory Rate >20: No Heart Rate >90: Yes Temp<36 C (96.8 F) or >38.3 C: No SBP <90 or MAP <65 mmHG: No New Acute Mental Status Change: No Is the patient on CPAP, BIPAP,: No Physician Orders Urinalysis (01/27/25 08:53) Ct Ab Pel Wo Con-No Oral Or Iv (01/27/25 09:33) Blood Culture (01/27/25 12:21) Bilirubin, Total (01/28/25 04:00) Drug Screen (01/27/25 12:29) Metronidazole 500mg/100ml (Flagyl 500mg/ (01/27/25 22:00) Ceftriaxone 1gm/50ml (Rocephin) (01/28/25 09:00) Ketorolac Injection (Toradol Injection) (01/27/25 16:30) Ketorolac Injection (Toradol Injection) (01/27/25 16:30) Admit (01/27/25 12:29) Allergies (01/27/25 12:29) Code Status (01/27/25 12:29) Sodium Chloride 0.9% (01/27/25 12:30) Ondansetron Hcl (Zofran) (01/27/25 12:30) Complete Blood Count (01/28/25 04:00) Comprehensive Metabolic Panel (01/28/25 04:00) Acetaminophen Tablet (Tylenol Tablet) (01/27/25 12:30) Clear Liq Diet (01/27/25 Lunch) Sequential Compression Device (01/27/25 ) Hydrochlorothiazide Tablet (Hydrochlorot (01/28/25 10:00) Paroxetine Tablet (Paxil Tablet) (01/28/25 10:00) Benazepril Hcl Tablet (Lotensin Tablet) (01/28/25 10:00) Cholecalciferol Tablet (Vitamin D3 Table (01/28/25 10:00) Metoprolol Xl Succinate (Toprol Xl) (01/28/25 10:00) Acute Hepatitis Panel (01/27/25 13:32) Atorvastatin (Lipitor) (01/27/25 22:00) Transfer Service (01/27/25 15:22) Vital Signs Date Time Temp Pulse Resp B/P (MAP) Pulse Ox O2 Delivery O2 Flow Rate FiO2 01/27/25 15:15 97.6 54 16 145/65 (91) 93 97.6 01/27/25 11:39 98.5 60 18 109/51 (70) 92 98.5 01/27/25 09:21 95 18 95 Room Air 01/27/25 09:21 98.5 95 18 139/73 (95) 95 98.5 01/27/25 08:45 98.2 102 16 132/85 93 98.2 Laboratory Tests Test 01/27/25 09:01 01/27/25 12:56 White Blood Count 15.5 10^3/uL (4.4-10.8) H Lactic Acid Level 0.9 mmol/L (0.4-2.0) Medications Medications Dose Ordered Sig/Anderson Route Start Time Stop Time Status Last Admin Dose Admin Ceftriaxone Sodium 50 ml @ 100 mls/hr ONCE ONCE IV 01/27/25 12:30 01/27/25 12:59 DC 01/27/25 13:20 Ketorolac Tromethamine 30 mg ONCE ONCE IV 01/27/25 09:45 01/27/25 09:46 DC 01/27/25 10:25 Metronidazole 100 ml @ 100 mls/hr ONCE ONCE IV 01/27/25 12:30 01/27/25 13:29 DC 01/27/25 13:20 Ondansetron HCl 4 mg ONCE ONCE IV 01/27/25 09:45 01/27/25 09:46 DC 01/27/25 10:25 Sodium Chloride 1,000 ml @ 120 mls/hr Q8H20M IV 01/27/25 12:30 01/27/25 13:57 Sodium Chloride 1,000 ml @ 150 mls/hr Q6H40M ONCE IV 01/27/25 09:45 01/27/25 12:48 DC 01/27/25 11:18 Sodium Chloride 1,000 ml @ 1,000 mls/hr Q1H ONCE IV 01/27/25 09:45 01/27/25 10:44 DC 01/27/25 10:03 Sodium Chloride 1,000 ml @ 1,000 mls/hr Q1H ONCE IV 01/27/25 12:30 01/27/25 13:29 DC 01/27/25 13:22 Results Labs Test 01/27/25 12:56 01/27/25 12:52 01/27/25 09:01 Range/Units Lactic Acid Level 0.9 0.4-2.0 mmol/L Lipase 30 12-53 U/L Plasma/Serum Blood Alcohol < 3.0 <10 mg/dL Hepatitis B Surface Antigen Negative Negative White Blood Count 15.5 H 4.4-10.8 10^3/uL Red Blood Count 5.49 H 4.0-5.20 10^6/uL Hemoglobin 16.3 H 12.2-16.2 g/dL Hematocrit 47.4 H 36.0-46.0 % Mean Corpuscular Volume 86.5 80.0-100.0 fL Mean Corpuscular Hemoglobin 29.7 28.0-32.0 pg Mean Corpuscular Hemoglobin Concent 34.3 32.0-36.0 g/dL Red Cell Distribution Width 14.1 11.8-14.3 % Platelet Count 216 140-450 10^3/uL Mean Platelet Volume 7.9 6.9-10.8 fL Neutrophils (%) (Auto) 70.8 37.0-80.0 % Lymphocytes (%) (Auto) 20.1 10.0-50.0 % Monocytes (%) (Auto) 8.1 0.0-12.0 % Eosinophils (%) (Auto) 0.2 0.0-7.0 % Basophils (%) (Auto) 0.8 0.0-2.0 % Neutrophils # (Auto) 11.0 H 1.6-8.6 10 ^3/uL Lymphocytes # (Auto) 3.1 0.4-5.4 10 ^3/uL Monocytes # (Auto) 1.3 0-1.3 10 ^3/uL Eosinophils # (Auto) 0 0-0.8 10 ^3/uL Basophils # (Auto) 0.1 0-0.2 10 ^3/uL Nucleated Red Blood Cells 0.0 % Sodium Level 140 136-145 mmol/L Potassium Level 3.7 3.5-5.1 mmol/L Chloride Level 105 98-107 mmol/L Carbon Dioxide Level 25 20-31 mmol/L Anion Gap 10 5-15 Blood Urea Nitrogen 15 9-23 mg/dL Creatinine 0.84 0.550-1.02 mg/dL Glomerular Filtration Rate Calc 74 >90 mL/min BUN/Creatinine Ratio 17.9 10.0-20.0 Serum Glucose 127 H 74-106 mg/dL Calcium Level 9.7 8.7-10.4 mg/dL Total Bilirubin 3.0 H 0.2-1.0 mg/dL Aspartate Amino Transferase (AST) 18 13-40 U/L Alanine Aminotransferase (ALT) 20 7-40 U/L Alkaline Phosphatase 64 46-116 U/L Total Protein 7.6 5.7-8.2 g/dL Albumin 4.4 3.2-4.8 g/dL Plan discussed with: Patient Problems List: (1) Acute diverticulitis Status: Acute Assessment & Plan: Acute diverticulitis- Treat with IV antibiotics Rocephin and Flagyl and IV fluids HTN- Continue anti-hypertensive meds with Benazapril and Metoprolol HLD- Continue hypercholesterolemia medications Anxiety- Continue medication for anxiety with ALICE Nash NP Jan 27, 2025 15:49
[2025-01-27 16:03] VITALS: BP 145/65; PULSE 54; RESP 16; TEMP 97.6; O2SAT 93
[2025-01-27] MEDS ORDERED: KETOROLAC TROMETH 30 MG/ML 1ML VIAL IV PRN (16:30)
[2025-01-27 20:00] VITALS: PULSE 67; RESP 18; O2SAT 97
[2025-01-27] MEDS: ATORVASTATIN 20 MG TAB PO SCH (21:14)
[2025-01-27] MEDS: KETOROLAC TROMETH 30 MG/ML 1ML VIAL IV PRN (21:14)
[2025-01-27] MEDS: ONDANSETRON HCL 4 MG/2 ML VIAL IV PRN (22:44)
[2025-01-28 01:00] VITALS: BP 134/81; PULSE 57; RESP 16; TEMP 97.9; O2SAT 91
[2025-01-28 05:00] VITALS: BP 132/66; PULSE 63; RESP 20; TEMP 97.6; O2SAT 90
[2025-01-28 05:26] LABS: Hematocrit 39.0 % (36.0-46.0); Hemoglobin 13.6 g/dL (12.2-16.2); Mean Corpuscular Hemoglobin 30.2 pg (28.0-32.0); Mean Corpuscular Volume 87.0 fL (80.0-100.0); Nucleated Red Blood Cells % 0.0 %
[2025-01-28 05:54] LABS: Alanine Aminotransferase 23 U/L (7-40); Albumin 3.5 g/dL (3.2-4.8); Alkaline Phosphatase 56 U/L (46-116); Anion Gap 8 (5-15); BUN/Creatinine Ratio 24.6 (10.0-20.0); Blood Urea Nitrogen 17 mg/dL (9-23); Calcium 8.8 mg/dL (8.7-10.4); Carbon Dioxide 27 mmol/L (20-31); Glucose 89 mg/dL (74-106); Potassium 3.5 mmol/L (3.5-5.1); Sodium 143 mmol/L (136-145); Total Protein 6.1 g/dL (5.7-8.2)
[2025-01-28 06:09] LABS: Bilirubin, Total 1.6 mg/dL (0.2-1.0); Chloride 108 mmol/L (98-107)
[2025-01-28 08:28] VITALS: BP 121/69; PULSE 69; RESP 16; TEMP 97.9; O2SAT 92
[2025-01-28] MEDS: BENAZEPRIL HCL 10 MG TAB PO SCH (08:47)
[2025-01-28] MEDS: PARoxetine 20 MG TAB PO SCH (08:48)
[2025-01-28] MEDS: hydroCHLOROthiazide 25 MG TAB PO SCH (08:48)
[2025-01-28] MEDS: CHOLECALCIFEROL (VITD3) 1,000UNIT=25mCg TAB PO SCH (08:49)
[2025-01-28] MEDS: METOPROLOL SUCCINATE XL 50 MG TAB PO SCH (08:49)
--- NOTE | 2025-01-28 10:26 | DVHPN2 ---
Progress Note - Dictate Date Seen: Jan 28, 2025 Medical Necessity Reason Pt with a Central, PICC or Fol: No Subjective Patient was admitted yesterday for abdominal pain. Patient states feeling much better still reports periodic pain to her left lower abdomen. vital signs Vital Sign Date Time Temp Pulse Resp B/P (MAP) Pulse Ox O2 Delivery O2 Flow Rate FiO2 01/28/25 08:49 69 121/69 01/28/25 08:28 97.9 16 92 97.9 01/27/25 20:00 Room Air* 0 21 Total Intake and Output 01/27/25 01/27/25 01/28/25 15:00 23:00 07:00 Intake Total 1000 ml 240 ml 0 ml Balance 1000 ml 240 ml 0 ml medications Current Medications Medications Dose Ordered Sig/Anderson Route Start Time Stop Time Status Last Admin Dose Admin Metronidazole 100 ml @ 100 mls/hr Q8HR IV 01/27/25 22:00 01/28/25 05:51 100 MLS/HR Ceftriaxone Sodium 50 ml @ 100 mls/hr DAILY@09 IV 01/28/25 09:00 01/28/25 08:51 100 MLS/HR Ketorolac Tromethamine 7.5 mg Q6HPRN PRN IV 01/27/25 16:30 02/01/25 16:29 Ketorolac Tromethamine 15 mg Q6HPRN PRN IV 01/27/25 16:30 02/01/25 16:29 01/27/25 21:14 15 MG Sodium Chloride 1,000 ml @ 120 mls/hr Q8H20M IV 01/27/25 12:30 01/28/25 05:10 120 MLS/HR Ondansetron HCl 4 mg Q4HP PRN IV 01/27/25 12:30 01/27/25 22:44 4 MG Acetaminophen 650 mg Q6HP PRN PO 01/27/25 12:30 Atorvastatin Calcium 20 mg HS PO 01/27/25 22:00 01/27/25 21:14 20 MG Hydrochlorothiazide 25 mg DAILY PO 01/28/25 10:00 01/28/25 08:48 25 MG Paroxetine HCl 20 mg DAILY PO 01/28/25 10:00 01/28/25 08:48 20 MG Benazepril HCl 20 mg DAILY PO 01/28/25 10:00 01/28/25 08:47 20 MG Cholecalciferol 2,000 unit DAILY PO 01/28/25 10:00 Metoprolol Succinate 25 mg DAILY PO 01/28/25 10:00 01/28/25 08:49 25 MG laboratory and microbiology Laboratory Tests 01/28/25 04:56 Test 01/28/25 04:56 Range/Units Serum Glucose 89 74-106 mg/dL Problem List Abdominal pain related to acute diverticulitis Assessment/Plan History of Present Illness Assessment: Floresita Tang is a 74-year-old female with a past medical history of hyperlipidemia, hypertension, and anxiety who was admitted overnight for intractable abdominal pain related to acute sigmoid diverticulitis. The patient presented with severe abdominal pain that was described as intractable, prompting her overnight admission. The pain is localized to her lower abdomen and she continues to report periodic pain upon palpation of this area. The patient is currently receiving IV hydration and PRN pain medication for symptom management. Medical History - Anxiety - Hypertension - Hyperlipidemia Medications and Supplements - Rocephin IV for acute diverticulitis - Flagyl for acute diverticulitis - Blood pressure medications for hypertension - Lipitor for hyperlipidemia - Anti-anxiety medications Review of Systems Gastrointestinal: Positive for periodic abdominal pain. Floresita Tang is a 74-year-old female with history of hyperlipidemia, hypertension, and anxiety admitted overnight for intractable abdominal pain related to acute sigmoid diverticulitis. Acute sigmoid diverticulitis Assessment: Patient presented with intractable abdominal pain and was found to have acute sigmoid diverticulitis. Initial white blood cell count was elevated at 15, indicating inflammatory response. Repeat labs today show normalization of white blood cell count, suggesting improvement with treatment. Patient continues to experience periodic pain upon palpation to lower abdomen but appears to be responding to current therapy. Plan: - Continue IV antibiotics with Rocephin and Flagyl - Continue IV hydration - Continue PRN pain medication - 24 hours additional observation with IV antibiotics - Reevaluate in morning for possible discharge and transition to oral antibiotics Hypertension Assessment: Patient has established hypertension requiring ongoing management. Plan: - Continue blood pressure medications Hyperlipidemia Assessment: Patient has established hyperlipidemia requiring ongoing management. Plan: - Continue Lipitor Anxiety Assessment: Patient has established anxiety requiring ongoing management. Plan: - Continue anti-anxiety medications Plan discussed with: Patient Total Time (mins): 30 ALICE ROBIN NP Jan 28, 2025 10:26
[2025-01-28 12:36] LABS: Urine Protein, UAD Negative (Negative)
[2025-01-28 12:48] LABS: Cannabinoid Screen, Urine Neg (NEGATIVE)
[2025-01-28 12:51] LABS: Amphetamine Screen, Urine Neg (NEGATIVE); Barbiturate Scree,Urine Neg (NEGATIVE); Benzodiazephine Screen, Urine Neg (NEGATIVE); Cocaine Screen, Urine Neg (NEGATIVE); Opiate Scree,Urine Neg (NEGATIVE); Phencyclidine Screen, Urine Neg (NEGATIVE)
[2025-01-28 17:00] VITALS: BP 133/71; PULSE 63; RESP 20; TEMP 98.4; O2SAT 94
[2025-01-28 20:00] VITALS: PULSE 69; RESP 18
[2025-01-28 21:00] VITALS: BP 132/80; PULSE 69; RESP 18; TEMP 98.2; O2SAT 94
[2025-01-29] VITALS (7 sets, daily range): BP systolic 131–157; BP diastolic 62–78; PULSE 60–68; RESP 16–19; TEMP 97.7–98.6; O2SAT 90–97
--- NOTE | 2025-01-29 09:13 | DVHPN2 ---
Progress Note - Dictate Date Seen: Jan 29, 2025 Medical Necessity Reason Pt with a Central, PICC or Fol: No Subjective Patient was admitted yesterday for abdominal pain. Patient states feeling much better still reports periodic pain to her left lower abdomen. vital signs Vital Sign Date Time Temp Pulse Resp B/P (MAP) Pulse Ox O2 Delivery O2 Flow Rate FiO2 01/29/25 05:00 98.6 64 18 140/75 (96) 97 98.6 01/28/25 20:00 Room Air* 0 21 Total Intake and Output 01/28/25 01/28/25 01/29/25 15:00 23:00 07:00 Intake Total 1000 ml 700 ml Balance 1000 ml 700 ml medications Current Medications Medications Dose Ordered Sig/Anderson Route Start Time Stop Time Status Last Admin Dose Admin Metronidazole 100 ml @ 100 mls/hr Q8HR IV 01/27/25 22:00 01/29/25 05:55 100 MLS/HR Ceftriaxone Sodium 50 ml @ 100 mls/hr DAILY@09 IV 01/28/25 09:00 01/28/25 08:51 100 MLS/HR Ketorolac Tromethamine 7.5 mg Q6HPRN PRN IV 01/27/25 16:30 02/01/25 16:29 Ketorolac Tromethamine 15 mg Q6HPRN PRN IV 01/27/25 16:30 02/01/25 16:29 01/27/25 21:14 15 MG Sodium Chloride 1,000 ml @ 120 mls/hr Q8H20M IV 01/27/25 12:30 01/29/25 06:10 120 MLS/HR Ondansetron HCl 4 mg Q4HP PRN IV 01/27/25 12:30 01/27/25 22:44 4 MG Acetaminophen 650 mg Q6HP PRN PO 01/27/25 12:30 Atorvastatin Calcium 20 mg HS PO 01/27/25 22:00 01/28/25 22:03 20 MG Hydrochlorothiazide 25 mg DAILY PO 01/28/25 10:00 01/28/25 08:48 25 MG Paroxetine HCl 20 mg DAILY PO 01/28/25 10:00 01/28/25 08:48 20 MG Benazepril HCl 20 mg DAILY PO 01/28/25 10:00 01/28/25 08:47 20 MG Cholecalciferol 2,000 unit DAILY PO 01/28/25 10:00 Metoprolol Succinate 25 mg DAILY PO 01/28/25 10:00 01/28/25 08:49 25 MG laboratory and microbiology Laboratory Tests 01/28/25 04:56 Test 01/28/25 04:56 Range/Units Serum Glucose 89 74-106 mg/dL Problem List Abdominal pain related to acute diverticulitis Assessment/Plan History of Present Illness Assessment: Floresita Tang is a 74-year-old female with a past medical history of hyperlipidemia, hypertension, and anxiety who was admitted overnight for intractable abdominal pain related to acute sigmoid diverticulitis. The patient presented with severe abdominal pain that was described as intractable, prompting her overnight admission. The pain is localized to her lower abdomen and she continues to report periodic pain upon palpation of this area. The patient is currently receiving IV hydration and PRN pain medication for symptom management. Medical History - Anxiety - Hypertension - Hyperlipidemia Medications and Supplements - Rocephin IV for acute diverticulitis - Flagyl for acute diverticulitis - Blood pressure medications for hypertension - Lipitor for hyperlipidemia - Anti-anxiety medications Review of Systems Gastrointestinal: Positive for periodic abdominal pain. Subjective: Patient is awake and alert. Floresita Tang is a 74-year-old female with history of hyperlipidemia, hypertension, and anxiety admitted overnight for intractable abdominal pain related to acute sigmoid diverticulitis. Acute sigmoid diverticulitis Patient was admitted for abdominal pain related to acute diverticulitis. Patient was started on IV antibiotics. Abdominal pain and tenderness to her left lower abdomen is slowly improving. Patient is able to tolerate food without nausea and vomiting. Plan: Continue soft diet. Continue IV antibiotics. Update [facility] facility. Plan for discharge tomorrow with oral antibiotics for 2 weeks. Plan: - Continue IV antibiotics with Rocephin and Flagyl - Plan for discharge tomorrow with oral antibiotics for 2 weeks. - Continue IV hydration - Continue PRN pain medication - Continue soft diet - 24 hours additional observation with IV antibiotics - Reevaluate in morning for possible discharge and transition to oral antibiotics Hypertension Assessment: Patient has established hypertension requiring ongoing management. Plan: - Continue blood pressure medications Hyperlipidemia Assessment: Patient has established hyperlipidemia requiring ongoing management. Plan: - Continue Lipitor Anxiety Assessment: Patient has established anxiety requiring ongoing management. Plan: - Continue anti-anxiety medications Plan discussed with: Patient, Other ALICE ROBIN NP Jan 29, 2025 09:13
[2025-01-30 01:00] VITALS: BP 154/97; PULSE 66; RESP 18; TEMP 97.9; O2SAT 90
[2025-01-30 05:00] VITALS: BP 132/55; PULSE 60; RESP 17; TEMP 97.7; O2SAT 90
[2025-01-30 05:47] LABS: Hematocrit 39.6 % (36.0-46.0); Hemoglobin 13.7 g/dL (12.2-16.2); Mean Corpuscular Hemoglobin 29.8 pg (28.0-32.0); Mean Corpuscular Volume 86.1 fL (80.0-100.0); Nucleated Red Blood Cells % 0.1 %
[2025-01-30 06:09] LABS: Alanine Aminotransferase 15 U/L (7-40); Albumin 3.6 g/dL (3.2-4.8); Alkaline Phosphatase 51 U/L (46-116); Anion Gap 9 (5-15); BUN/Creatinine Ratio 18.5 (10.0-20.0); Blood Urea Nitrogen 12 mg/dL (9-23); Calcium 8.9 mg/dL (8.7-10.4); Chloride 104 mmol/L (98-107); Glucose 104 mg/dL (74-106); Total Protein 5.9 g/dL (5.7-8.2)
[2025-01-30 06:10] LABS: Bilirubin, Total 0.6 mg/dL (0.2-1.0)
[2025-01-30 06:14] LABS: Carbon Dioxide 32 mmol/L (20-31); Potassium 3.2 mmol/L (3.5-5.1); Sodium 145 mmol/L (136-145)
[2025-01-30 09:00] VITALS: BP 143/75; PULSE 56; RESP 16; TEMP 97.4; O2SAT 93
[2025-01-30] MEDS ORDERED: CIPR-173 PO (11:16)
[2025-01-30] MEDS ORDERED: METR-344 PO (11:16)
--- NOTE | 2025-01-30 11:17 | DVHDS2 ---
Discharge Summary Date of Admission Jan 27, 2025 at 16:20 Date of Discharge: Jan 30, 2025 Labs/Diagnostic Data: Laboratory Results Test 01/30/25 05:22 01/28/25 11:27 01/27/25 12:56 01/27/25 12:52 White Blood Count 7.2 10^3/uL (4.4-10.8) Red Blood Count 4.60 10^6/uL (4.0-5.20) Hemoglobin 13.7 g/dL (12.2-16.2) Hematocrit 39.6 % (36.0-46.0) Mean Corpuscular Volume 86.1 fL (80.0-100.0) Mean Corpuscular Hemoglobin 29.8 pg (28.0-32.0) Mean Corpuscular Hemoglobin Concent 34.6 g/dL (32.0-36.0) Red Cell Distribution Width 13.5 % (11.8-14.3) Platelet Count 215 10^3/uL (140-450) Mean Platelet Volume 7.7 fL (6.9-10.8) Neutrophils (%) (Auto) 52.3 % (37.0-80.0) Lymphocytes (%) (Auto) 33.9 % (10.0-50.0) Monocytes (%) (Auto) 8.4 % (0.0-12.0) Eosinophils (%) (Auto) 4.5 % (0.0-7.0) Basophils (%) (Auto) 0.9 % (0.0-2.0) Neutrophils # (Auto) 3.8 10 ^3/uL (1.6-8.6) Lymphocytes # (Auto) 2.4 10 ^3/uL (0.4-5.4) Monocytes # (Auto) 0.6 10 ^3/uL (0-1.3) Eosinophils # (Auto) 0.3 10 ^3/uL (0-0.8) Basophils # (Auto) 0.1 10 ^3/uL (0-0.2) Nucleated Red Blood Cells 0.1 % Sodium Level 145 mmol/L (136-145) Potassium Level 3.2 mmol/L (3.5-5.1) Chloride Level 104 mmol/L (98-107) Carbon Dioxide Level 32 mmol/L (20-31) Anion Gap 9 (5-15) Blood Urea Nitrogen 12 mg/dL (9-23) Creatinine 0.65 mg/dL (0.550-1.02) Glomerular Filtration Rate Calc 93 mL/min (>90) BUN/Creatinine Ratio 18.5 (10.0-20.0) Serum Glucose 104 mg/dL (74-106) Calcium Level 8.9 mg/dL (8.7-10.4) Total Bilirubin 0.6 mg/dL (0.2-1.0) Aspartate Amino Transferase (AST) 11 U/L (13-40) Alanine Aminotransferase (ALT) 15 U/L (7-40) Alkaline Phosphatase 51 U/L (46-116) Total Protein 5.9 g/dL (5.7-8.2) Albumin 3.6 g/dL (3.2-4.8) Urine Color Light-yellow (Yellow) Urine Clarity Hazy (Clear) Urine pH 5.0 (5.0-9.0) Urine Specific [place] 1.010 (1.001-1.035) Urine Protein Negative (Negative) Urine Ketones Trace (Negative) Urine Blood Negative /uL (Negative) Urine Nitrite Negative (Negative) Urine Bilirubin Negative (Negative) Urine Urobilinogen Normal mg/dL (Negative) Urine Leukocyte Esterase 2+ /uL (Negative) Urine RBC 1 /hpf (0 - 4) Urine Microscopic WBC 18 /HPF (0-5) Urine Squamous Epithelial Cells Few /hpf (<5) Urine Bacteria Few /hpf (None Seen) Urine Glucose Normal mg/dL (Normal) Urine Opiates Screen Neg (NEGATIVE) Urine Fentanyl Screen Neg (NEGATIVE) Urine Barbiturates Screen Neg (NEGATIVE) Urine Phencyclidine Screen Neg (NEGATIVE) Urine Amphetamines Screen Neg (NEGATIVE) Urine Benzodiazepines Screen Neg (NEGATIVE) Urine Cocaine Screen Neg (NEGATIVE) Urine Cannabinoids Screen Neg (NEGATIVE) Lactic Acid Level 0.9 mmol/L (0.4-2.0) Lipase 30 U/L (12-53) Plasma/Serum Blood Alcohol < 3.0 mg/dL (<10) Hepatitis B Surface Antigen Negative (Negative) Other Laboratory Tests 01/30/25 05:22 Brief Hx & Hospital Course: Ms. Tang, a female with history of diverticulitis, hypertension, hypercholesterolemia, and anxiety, presented to the emergency room with abdominal pain. She suspected a diverticulitis flare but denied fever, vomiting, diarrhea, or blood in stool. Her medications included benazepril and metoprolol for hypertension. Physical examination revealed no acute distress, normal cardiovascular findings, and no respiratory distress. Patient was admitted 01/27/2025 for intractable abdominal pain related to acute sigmoid diverticulitis. Patient was started on IV antibiotics and she was placed on a clear liquid diet. Patient had nausea and vomiting. And with the initiation of antibiotic patient started to feel better. Patient was advanced from a clear liquid diet to a soft diet. She continued IV antibiotics with Rocephin and Flagyl. Patient's condition improved and she was discharged on oral antibiotics with Cipro twice daily and Flagyl 3 times daily for 2 weeks. She was instructed to follow-up with pace physician on Saturday. She is to continue all her home medications. The patient received proper medical treatment and medications. Vital signs, Imaging and Laboratory Work was monitored daily. All consults recommendations were followed as provided. There were no complaints or new complaints upon discharge, all questions and concerns were answered. Patient was advised to return to the ER or call 911 if any headaches, dizziness, shortness of breath, chest pain, bleeding, fevers, or worsening of medical condition. Patient/Family was counseled about treatment plan, medications, possible side effects, patient verbalized understanding. All questions were answered to the best of my ability. The patient symptoms improved and they are okay to be DC. Condition at Discharge: Good Final Diagnosis/Problems List Diverticulitis Secondary Diagnosis: Acute sigmoid diverticulitis Hypertension Hyperlipidemia Anxiety Discharge Disposition: Home Discharge Instruct/Medications Diet: Regular Diet comment: soft diet Activity: No Restrictions, As Tolerated Scheduled Atorvastatin Calcium (Atorvastatin Calcium), 1 TAB PO DAILY, (Reported) Benazepril Hcl (Benazepril Hcl), 1 TAB PO DAILY Cholecalciferol (Vitamin D3), 1 TAB PO DAILY, (Reported) Ciprofloxacin Hcl (Cipro), 1 TAB PO BID Hydrochlorothiazide (Hydrochlorothiazide), 1 TAB PO DAILY, (Reported) Metoprolol Succinate (Metoprolol Succinate Er), 1 TAB PO DAILY Metronidazole (Flagyl), 1 TAB PO TID Paroxetine (Paxil Tablet), 1 TAB PO DAILY, (Reported) Discontinued Medications Levofloxacin Hemihydrate (Levofloxacin), 1 TAB PO DAILY Metronidazole (Flagyl), 1 TAB PO TID Discharge Statement: "Patient was advised to return to the ER or call 911 if any headaches, dizziness, shortness of breath, chest pain, abdominal pain, bleeding, fevers, or worsening of medical condition. Patient was counseled about treatment plan, medications, possible side effects, patientverbalized understanding. All questions were answered to the best of my ability. This discharge took greater then 30 minutes in planning, reviewing documentation, counseling the patient, and discussing with other team members." ASSESSMENT ASSESSMENT Assessment Diverticulitis ALICE ROBIN NP Jan 30, 2025 11:17
[2025-01-30] MEDS: POTASSIUM CHL 20 Meq TABLET PO ONE (12:04)
[2025-01-30 13:00] VITALS: BP 155/80; PULSE 52; RESP 17; TEMP 97.5; O2SAT 94
[2025-02-05 11:42] LABS: Hepatitis C Antibody Negative (Negative)
== END 2025-01-30 15:30 | disposition home or self-care (01) | DRG 392 ==
LOC: ER 08:43 → OVERFLOW 12:29 → UNDOADMIN 12:29 → OVERFLOW 16:20 → CENTRAL 22:10
DX: K57.32 Diverticulitis of large intestine without perforation or abscess without bleeding (principal); E66.9 Obesity, unspecified; I10 Essential (primary) hypertension; Z68.33 Body mass index [BMI] 33.0-33.9, adult; F41.9 Anxiety disorder, unspecified; E78.00 Pure hypercholesterolemia, unspecified; E80.6 Other disorders of bilirubin metabolism; Z82.49 Family history of ischemic heart disease and other diseases of the circulatory system; Z87.440 Personal history of urinary (tract) infections; Z90.49 Acquired absence of other specified parts of digestive tract
CPT/HCPCS: 36415; 74176; 80053; 80074; 80307; 80320; 81001; 83605; 83690; 85025; 87040; 96361; 96365; 96368; 96375; 99291; 99292; G0378; J1885; J2405; J3490